=== PATIENT | female | born 1960 | race Caucasian/White ===

== ENCOUNTER → 2016-05-09 | Outpatient (CLI) | payer MEDICAID | LOC: WI 14:49 | PROVIDERS: ATTEND Internal Medicine | DX: Z12.31 Encounter for screening mammogram for malignant neoplasm of breast (principal) | CPT/HCPCS: 77067; G0202 ==

== ENCOUNTER → 2016-08-30 | Outpatient (CLI) | payer MEDICAID ==
[2016-08-30 14:44] LABS: HEMATOCRIT 35.2 % (36.0-47.0); HEMOGLOBIN 12.1 g/dL (12.0-15.5); HGB HCT DIFFERENCE 1.1; MEAN CORPUSCULAR HEMOGLOBIN 34.3 pg (27.0-33.4); MEAN CORPUSCULAR HGB CONC 34.3 g/dL (32.0-36.0); MEAN CORPUSCULAR VOLUME 100 fl (80-97); RED BLOOD COUNT 3.53 10^6/uL (3.72-5.28); RED CELL DISTRIBUTION WIDTH 12.6 % (11.5-14.0); WHITE BLOOD COUNT 10.4 10^3/uL (4.0-10.5)
== END ==
LOC: OD 13:34
PROVIDERS: ATTEND Specialist
DX: R56.9 Unspecified convulsions (principal)
CPT/HCPCS: 36415; 80156; 84460; 85027

== ENCOUNTER 2016-12-29 13:58 | Inpatient (IN) | payer MEDICAID ==
[2016-12-29] MEDS ORDERED: KETOROLAC TROMETHAMINE INJ/PF 30 MG/1 ML SDV IV ONE (14:09)
[2016-12-29] MEDS ORDERED: NORMAL SALINE 1000 ML 1,000 ML IV ONE (14:09)
[2016-12-29] MEDS ORDERED: ONDANSETRON HCL INJ/PF 4 MG/2 ML SDV IV ONE (14:09)
--- NOTE | 2016-12-29 14:12 | ER Document Report ---
ED Medical Screen (RME) - General Chief Complaint: Nausea/Vomiting/Diarrhea Stated Complaint: VOMITING,STOMACH PAIN Time Seen by Provider: 12/29/16 14:08 Mode of Arrival: Wheelchair Information source: Patient TRAVEL OUTSIDE OF THE [place] IN LAST 30 DAYS: No - HPI Patient complains to provider of: abd pain; vomiting Onset: Yesterday - pt seen here yesterday with d/o colitis -- not able to keep food or fluids down since this am -- now has diarrhea with some blood mixed in and worsening of pain - Related Data Allergies/Adverse Reactions: Penicillins Allergy (Intermediate, Verified 12/29/16 14:03) RASH, HIVES, ITCHING Past Medical History - Past Medical History Cardiac Medical History: Reports: Hx Hypercholesterolemia, Hx Hypertension Denies: Hx Coronary Artery Disease, Hx Heart Attack Pulmonary Medical History: Denies: Hx Asthma, Hx Bronchitis, Hx COPD, Hx Pneumonia Neurological Medical History: Reports: Hx Migraine, Hx Seizures. Denies: Hx Cerebrovascular Accident Renal/ Medical History: Denies: Hx Peritoneal Dialysis GI Medical History: Denies: Hx Hepatitis, Hx Hiatal Hernia, Hx Ulcer Musculoskeltal Medical History: Denies Hx Arthritis Psychiatric Medical History: Reports: Hx Anxiety, Hx Depression Infectious Medical History: Denies: Hx Hepatitis Past Surgical History: Reports: Hx Hysterectomy. Denies: Hx Mastectomy, Hx Open Heart Surgery, Hx Pacemaker - Immunizations Hx Diphtheria, Pertussis, Tetanus Vaccination: Yes Physical Exam - Vital signs Vitals: Temp Pulse Resp BP Pulse Ox 98.6 F 105 H 18 99/68 L 97 12/29/16 14:04 12/29/16 14:04 12/29/16 14:04 12/29/16 14:04 12/29/16 14:04 Course - Vital Signs Vital signs: Temp Pulse Resp BP Pulse Ox 98.6 F 105 H 18 99/68 L 97 12/29/16 14:04 12/29/16 14:04 12/29/16 14:04 12/29/16 14:04 12/29/16 14:04
[2016-12-29 15:09] LABS: APPEARANCE,URINE SLIGHTLY-CLOUDY; BILIRUBIN,URINE NEGATIVE (NEGATIVE); GLUCOSE, URINE NEGATIVE (NEGATIVE); KETONES,URINE TRACE mg/dL (NEGATIVE); LEUKOCYTE ESTERASE,URINE SMALL (NEGATIVE); NITRITE,URINE NEGATIVE (NEGATIVE); PROTEIN,URINE NEGATIVE (NEGATIVE); URINE SPECIFIC GRAVITY 1.024; UROBILINOGEN,URINE NEGATIVE mg/dL (<2.0)
[2016-12-29 15:35] LABS: HEMATOCRIT 34.5 % (36.0-47.0); HEMOGLOBIN 11.8 g/dL (12.0-15.5); HGB HCT DIFFERENCE 0.9; MEAN CORPUSCULAR HEMOGLOBIN 34.2 pg (27.0-33.4); MEAN CORPUSCULAR HGB CONC 34.4 g/dL (32.0-36.0); MEAN CORPUSCULAR VOLUME 100 fl (80-97); RED BLOOD COUNT 3.47 10^6/uL (3.72-5.28); RED CELL DISTRIBUTION WIDTH 12.3 % (11.5-14.0)
[2016-12-29 15:49] LABS: ALANINE AMINOTRANSFERASE 23 U/L (9-52); ALKALINE PHOSPHATASE 116 U/L (38-126); ANION GAP 9 (5-19); ASPARTATE AMINO TRANSFERASE 22 U/L (14-36); BILIRUBIN,DIRECT 0.4 mg/dL (0.0-0.4); BILIRUBIN,TOTAL 0.7 mg/dL (0.2-1.3); BLOOD UREA NITROGEN 11 mg/dL (7-20); CARBON DIOXIDE 25 mmol/L (22-30); CHLORIDE 100 mmol/L (98-107); CREATININE RESULT 0.77 mg/dL (0.52-1.25); GLUCOSE 120 mg/dL (75-110); LIPASE 81.9 U/L (23-300); POTASSIUM 3.8 mmol/L (3.6-5.0); SODIUM 133.7 mmol/L (137-145)
[2016-12-29 15:53] LABS: BASOPHILS % (MANUAL) 0 % (0-2); EOSINOPHILS % (MANUAL) 0 % (0-6); LYMPHOCYTES % (MANUAL) 4 % (13-45); TOTAL CELLS COUNTED 100
--- NOTE | 2016-12-29 15:53 | RADIOLOGY REPORT (SQ) ---
EXAM DESCRIPTION: ACUTE ABDOMEN SERIES COMPLETED DATE/TIME: 12/29/2016 3:44 pm REASON FOR STUDY: abd pain; vomiting COMPARISON: None. NUMBER OF VIEWS: Three views. TECHNIQUE: Frontal chest, supine abdomen and upright abdomen radiographic images acquired. LIMITATIONS: None. FINDINGS: CHEST: Lungs clear of infiltrates. FREE AIR: None. No abnormal gas collections. BOWEL GAS PATTERN: There is moderate amount of bowel gas, but no distended loops of bowel are present . There is contrast in the ascending colon from prior CT. CALCIFICATIONS: No suspicious calcifications. HARDWARE: None in the abdomen. SOFT TISSUES: No gross mass or suggestion of organomegaly. BONES: No acute fracture. No worrisome bone lesions. OTHER: No other significant finding. IMPRESSION: Nonspecific abdomen. TECHNICAL DOCUMENTATION: JOB ID: [id number] [employer]- All Rights Reserved
[2016-12-29 15:54] LABS: MICROCYTOSIS SLIGHT
[2016-12-29 15:55] LABS: TOXIC GRANULATION SLIGHT
--- NOTE | 2016-12-29 16:12 | ER Document Report ---
ED GI/ - General Chief Complaint: Nausea/Vomiting/Diarrhea Stated Complaint: VOMITING,STOMACH PAIN Time Seen by Provider: 12/29/16 14:08 Mode of Arrival: Wheelchair Information source: Patient Notes: Patient is a 56-year-old female who was seen here yesterday by myself for nausea , vomiting, lower abdominal pain, worse on the left side, diarrhea. Patient states that she went home with her antibiotics that I gave her, Cipro, Flagyl and her pain medication and nausea medication but could not hold anything down even after taking the nausea medication. Patient states that she has now started having some blood in her diarrhea that scared her. She states that it was bright red blood, but that it did not hurt to have a bowel movement. Patient states that her pain is the same in the left lower quadrant. She denies any fevers but admits to body aches and "just feeling awful." TRAVEL OUTSIDE OF THE [place] IN LAST 30 DAYS: No - Related Data Allergies/Adverse Reactions: Penicillins Allergy (Intermediate, Verified 12/29/16 14:03) RASH, HIVES, ITCHING Home Medications: Current Home Medications Atorvastatin Calcium [Lipitor 10 mg Tablet] 10 mg PO QHS 12/29/16 [History] Butalb/Acetaminophen/Caffeine [Qxomks-Xbivhjsm-Xumn 50-325-40] 1 tab PO Q8HP PRN 12/29/16 [History] Carbamazepine [Carbamazepine ER] 400 mg PO Q12 12/29/16 [History] Lisinopril/Hydrochlorothiazide [Lisinopril-Hctz 20-12.5 mg Tab] 1 tab PO DAILY 12/29/16 [History] Metoprolol Succinate [Toprol Xl 50 mg Tab.sr] 50 mg PO DAILY 12/29/16 [History] Omeprazole 20 mg PO DAILY 12/29/16 [History] Quetiapine Fumarate [Seroquel] 100 mg PO QHS 12/29/16 [History] Past Medical History - General Information source: Patient - Social History Smoking Status: Unknown if Ever Smoked Family History: Reviewed & Not Pertinent Patient has suicidal ideation: No Patient has homicidal ideation: No - Past Medical History Cardiac Medical History: Reports: Hx Hypercholesterolemia, Hx Hypertension Denies: Hx Coronary Artery Disease, Hx Heart Attack Pulmonary Medical History: Denies: Hx Asthma, Hx Bronchitis, Hx COPD, Hx Pneumonia Neurological Medical History: Reports: Hx Migraine, Hx Seizures. Denies: Hx Cerebrovascular Accident Renal/ Medical History: Denies: Hx Peritoneal Dialysis GI Medical History: Denies: Hx Hepatitis, Hx Hiatal Hernia, Hx Ulcer Musculoskeltal Medical History: Denies Hx Arthritis Psychiatric Medical History: Reports: Hx Anxiety, Hx Depression Infectious Medical History: Denies: Hx Hepatitis Past Surgical History: Reports: Hx Hysterectomy. Denies: Hx Mastectomy, Hx Open Heart Surgery, Hx Pacemaker - Immunizations Hx Diphtheria, Pertussis, Tetanus Vaccination: Yes Review of Systems - Review of Systems Constitutional: See HPI EENT: No symptoms reported Cardiovascular: No symptoms reported Respiratory: No symptoms reported Gastrointestinal: See HPI Genitourinary: No symptoms reported Female Genitourinary: No symptoms reported Musculoskeletal: No symptoms reported Skin: No symptoms reported Hematologic/Lymphatic: No symptoms reported Neurological/Psychological: No symptoms reported Physical Exam - Vital signs Vitals: Temp Pulse Resp BP Pulse Ox 98.6 F 105 H 18 99/68 L 97 12/29/16 14:04 12/29/16 14:04 12/29/16 14:04 12/29/16 14:04 12/29/16 14:04 - Notes Notes: PHYSICAL EXAMINATION: GENERAL: Mildly ill-appearing, but in no acute distress. HEAD: Atraumatic, normocephalic. EYES: Pupils equal round and reactive to light, extraocular movements intact, sclera anicteric, conjunctiva are normal. NECK: Normal range of motion, supple without lymphadenopathy LUNGS: CTAB and equal. No wheezes rales or rhonchi. HEART: Regular rate and rhythm without murmurs ABDOMEN: Soft, mild diffuse tenderness, moderate left lower quadrant tenderness. No guarding, no rebound BACK: no vertebral tenderness, normal ROM GI/: no CVA tenderness rectal: Normal tone, no blood, no hemorrhoids appreciated EXTREMITIES: Normal range of motion, no pitting edema. No cyanosis. NEUROLOGICAL: Cranial nerves grossly intact. Normal sensory/motor exams. PSYCH: Normal mood, normal affect. SKIN: Warm, Dry, normal turgor, no rashes or lesions noted Course - Re-evaluation Re-evalutation: 12/29/16 18:28 Patient has a white count of 28,000. Patient was asked to give us a stool sample yesterday but could not. Patient was asked again today to give us a stool sample. Patient admitted here for colitis, likely C. difficile, to Dr. Loyola hospitalist., - Vital Signs Vital signs: Temp Pulse Resp BP Pulse Ox 98.4 F 81 20 100/49 L 98 12/29/16 14:51 12/29/16 16:48 12/29/16 14:51 12/29/16 16:48 12/29/16 16:48 - Laboratory Result Diagrams: 12/29/16 15:04 12/29/16 15:04 Laboratory results interpreted by me: 12/29/16 12/29/16 12/29/16 14:25 15:04 15:04 WBC 28.0 H RBC 3.47 L Hgb 11.8 L Hct 34.5 L MCV 100 H MCH 34.2 H Seg Neuts % (Manual) 93 H Lymphocytes % (Manual) 4 L Abs Neuts (Manual) 26.0 H Sodium 133.7 L Glucose 120 H Urine Ketones TRACE H Urine Blood SMALL H Ur Leukocyte Esterase SMALL H Discharge - Discharge Clinical Impression: Colitis, Vomiting and diarrhea Condition: Stable Disposition: ADMITTED INPATIENT Admitting Provider: Hospitalist Unit Admitted: Medical Floor
[2016-12-29] MEDS ORDERED: ACETAMINOPHEN 650 MG SUPP.RECT PR PRN (16:14)
[2016-12-29] MEDS ORDERED: RINGERS SOLUTION 1,000 ML IV PRN (16:22)
--- NOTE | 2016-12-29 17:15 | PDOC H&P ---
History of Present Illness Admission Date/PCP: 12/29/16 16:14 VERA MAYORGA MD Patient complains of: Nausea and vomiting since yesterday History of Present Illness: RUY SIMS is a 56 year old femaleWas seen in emergency room on December 28 since was having acute onset of generalized abdominal pain accompanied by nausea and vomiting. At that point in time patient was evaluated through CT of the abdomen and pelvis which showed inflammation of the sigmoid colon. Since she improved patient was prescribed Cipro and Flagyl and discharged from the emergency room. Patient then returns back on the day of admission complaining of nausea and vomiting and worsening of pain. Interestingly by the time of evaluation patient reported feeling better. When stomach pain started she also experienced watery diarrhea. She admits that she had been prescribed for multiple occasions antibiotics due to recurrent urinary tract infection. Patient again was evaluated in emergency room and it was concerning that white blood cell count went up. Since was not able to tolerate p.o. and white blood cell count had gone up the hospitalist service was consulted and prompted to admit for further management Past Medical History Cardiac Medical History: Reports: Hyperlipidema, Hypertension Denies: Coronary Artery Disease, Myocardial Infarction Pulmonary Medical History: Denies: Asthma, Bronchitis, Chronic Obstructive Pulmonary Disease (COPD), Pneumonia Neurological Medical History: Reports: Migraine, Seizures, Other - Cerebral aneurysm Endocrine Medical History: Denies: None Renal/ Medical History: Reports: Other - Right urinary tract infection Malignancy Medical History: Denies: None GI Medical History: Denies: Hepatitis, Hiatal Hernia Musculoskeltal Medical History: Denies: Arthritis Psychiatric Medical History: Reports: Depression, Tobacco Dependency Hematology: Denies: Anemia, Sickle Cell Disease Past Surgical History Past Surgical History: Reports: Hysterectomy, Other - Clipping of cerebral aneurysm Denies: Amputation, Mastectomy, Pacemaker Social History Information Source: Patient Smoking Status: Current Every Day Smoker Cigarettes Packs Per Day: 1 Number of Years Smokin Frequency of Alcohol Use: None Hx Recreational Drug Use: Yes Drugs: None Hx Prescription Drug Abuse: Yes - Advance Directive Resuscitation Status: Full Code Family History Family History: Malignancy Parental Family History Reviewed: Yes Children Family History Reviewed: Yes Sibling(s) Family History Reviewed.: Yes Medication/Allergy Home Medications: Carbamazepine [Tegretol Xr 100 mg Tab.sr] 400 mg PO BID 09/11/12 Metoprolol Succinate [Toprol Xl 25 mg Tab.sr] 50 mg PO DAILY 09/11/12 Quetiapine Fumarate [Seroquel 25 mg Tablet] 100 mg PO QHS 09/11/12 Lisinopril/Hydrochlorothiazide [Lisinopril-Hctz 20-12.5 mg Tab] 1 each PO DAILY 12/02/12 Aspirin/Caffeine [Bc Powder Packet] 1 pkt PO DAILY PRN 11/11/13 Diphenhydramine HCl [Benadryl 25 Mg Capsule] 25 mg PO Q6 #30 capsule 02/28/14 Famotidine [Pepcid 20 mg Tablet] 20 mg PO BID #12 tablet 02/28/14 Prednisone 40 mg PO DAILY #8 tablet 02/28/14 Ciprofloxacin HCl [Cipro 500 mg Tablet] 500 mg PO BID #20 tablet 12/28/16 Metronidazole [Flagyl 500 mg Tablet] 500 mg PO BID #20 tablet 12/28/16 Ondansetron [Zofran Odt 4 mg Tablet] 1 - 2 tab PO Q4H PRN #30 tab.rapdis Oxycodone HCl/Acetaminophen [Percocet 5-325 mg Tablet] 1 - 2 tab PO Q4H PRN #15 tablet 12/28/16 Allergies/Adverse Reactions: Penicillins Allergy (Intermediate, Verified 12/29/16 14:03) RASH, HIVES, ITCHING Review of Systems Constitutional: PRESENT: chills, headache(s), weakness Eyes: ABSENT: visual disturbances Ears: ABSENT: hearing changes Cardiovascular: ABSENT: edema, orthropnea, palpitations Respiratory: ABSENT: cough Gastrointestinal: PRESENT: abdominal pain, bloating, diarrhea, nausea, vomiting Genitourinary: ABSENT: difficulty urinating, dysuria Musculoskeletal: ABSENT: deformity, joint swelling Integumentary: ABSENT: lesions, pruritus Neurological: ABSENT: abnormal gait, focal weakness Psychiatric: PRESENT: depression Endocrine: ABSENT: cold intolerance, heat intolerance Hematologic/Lymphatic: ABSENT: easy bleeding, easy bruising Physical Exam Vital Signs: Temp Pulse Resp BP Pulse Ox 98.6 F 81 18 100/49 L 98 12/29/16 14:04 12/29/16 16:48 12/29/16 14:04 12/29/16 16:48 12/29/16 16:48 General appearance: PRESENT: no acute distress, cooperative, thin Head exam: PRESENT: atraumatic, normocephalic Eye exam: PRESENT: conjunctiva pink, EOMI, PERRLA Ear exam: PRESENT: normal external ear exam Mouth exam: PRESENT: dry mucosa, neck supple Neck exam: PRESENT: full ROM. ABSENT: JVD, lymphadenopathy, tenderness, thyromegaly Respiratory exam: PRESENT: clear to auscultation yoana Cardiovascular exam: PRESENT: RRR. ABSENT: diastolic murmur, gallop, systolic murmur Vascular exam: PRESENT: normal capillary refill GI/Abdominal exam: PRESENT: distended, guarding, normal bowel sounds, tenderness Rectal exam: PRESENT: deferred Extremities exam: PRESENT: full ROM. ABSENT: joint swelling, pedal edema Musculoskeletal exam: PRESENT: full ROM Neurological exam: PRESENT: alert, oriented to person, oriented to place, oriented to time Psychiatric exam: PRESENT: appropriate affect, normal mood Skin exam: PRESENT: intact, normal color Results Impressions: Acute Abdomen Series 12/29/16 14:09 IMPRESSION: Nonspecific abdomen. Assessment & Plan - Diagnosis (1) Nausea and vomiting Qualifiers: Vomiting Intractability: unspecified Is this a current diagnosis for this admission?: Yes Plan: Patient will be placed on nothing by mouth except medications. Will provide antiemetics and she will be placed on IV fluids (2) Tobacco abuse Is this a current diagnosis for this admission?: Yes Plan: We will request nicotine patch patient has been educated about quitting smoking. Made aware about the dangers such as heart attack, stroke, lung cancer , emphysema and circulatory problems inclusive (3) Tobacco abuse counseling Is this a current diagnosis for this admission?: Yes Plan: Counseling provided as aforementioned (4) Seizure disorder Is this a current diagnosis for this admission?: Yes Plan: Has not experienced a seizure episode for around 20 years however will continue with Tegretol as outpatient (5) Colitis Is this a current diagnosis for this admission?: Yes Plan: Suspect that it relates to Clostridium difficile. Patient at the present time unable to collect stool sample. She will be kept n.p.o. except for meds and will start Flagyl IV. (6) HTN (hypertension) Is this a current diagnosis for this admission?: Yes Plan: Now on the lower side. Will hold off antihypertensive regimen. - Time Time Spent: 50 to 70 Minutes Medications reviewed and adjusted accordingly: Yes Anticipated discharge: Home Within: within 48 hours - Inpatient Certification Based on my medical assessment, after consideration of the patient's comorbidities, presenting symptoms, or acuity I expect that the services needed warrant INPATIENT care.: Yes I certify that my determination is in accordance with my understanding of Medicare's requirements for reasonable and necessary INPATIENT services [42 CFR 412.3e].: Yes Medical Necessity: Need For IV Fluids, Need for Pain Control, Need for IV Antibiotics
[2016-12-29] MEDS: MORPHINE SULFATE 10 MG/ML INJ IV PRN (20:15)
[2016-12-29] MEDS: QUETIAPINE FUMARATE 100 MG TABLET PO SCH (21:23)
[2016-12-29] MEDS: CARBAMAZEPINE 200 MG TAB.SR.12H PO SCH (21:23)
[2016-12-29] MEDS ORDERED: CARBAMAZEPINE 400 MG PO SCH (22:00)
[2016-12-30 06:16] LABS: ABSOLUTE EOSINOPHILS # (AUTO) 0.1 10^3/uL (0.0-0.6); ABSOLUTE LYMPHOCYTES (AUTO) 2.1 10^3/uL (0.5-4.7); ABSOLUTE NEUT (AUTO) 12.6 10^3/uL (1.7-8.2); BASOPHILS % (AUTO) 0.2 % (0-2); EOSINOPHILS % (AUTO) 0.5 % (0-6); HEMATOCRIT 25.5 % (36.0-47.0); HGB HCT DIFFERENCE 1.2; LYMPHOCYTES % (AUTO) 13.3 % (13-45); MEAN CORPUSCULAR HEMOGLOBIN 35.1 pg (27.0-33.4); MEAN CORPUSCULAR VOLUME 100 fl (80-97); MONOCYTES % (AUTO) 6.6 % (3-13); RED BLOOD COUNT 2.54 10^6/uL (3.72-5.28); RED CELL DISTRIBUTION WIDTH 12.4 % (11.5-14.0); SEGMENTED NEUTROPHILS % (AUTO) 79.4 % (42-78); WHITE BLOOD COUNT 15.9 10^3/uL (4.0-10.5)
[2016-12-30 06:19] LABS: HEMOGLOBIN 8.9 g/dL (12.0-15.5)
[2016-12-30 06:30] LABS: ANION GAP 7 (5-19); BLOOD UREA NITROGEN 9 mg/dL (7-20); CALCIUM 8.1 mg/dL (8.4-10.2); CARBON DIOXIDE 27 mmol/L (22-30); CHLORIDE 105 mmol/L (98-107); CREATININE RESULT 0.76 mg/dL (0.52-1.25); GLUCOSE 85 mg/dL (75-110); MAGNESIUM 1.7 mg/dL (1.6-2.3); POTASSIUM 3.4 mmol/L (3.6-5.0); SODIUM 138.9 mmol/L (137-145)
[2016-12-30] MEDS: MORPHINE SULFATE 10 MG/ML INJ IV PRN ×2 (09:44→20:26)
[2016-12-30] MEDS: CARBAMAZEPINE 200 MG TAB.SR.12H PO SCH ×2 (09:44→21:32)
[2016-12-30] MEDS ORDERED: ENOXAPARIN SODIUM INJ 40 MG/0.4 ML DISP.SYRIN SUBCUT SCH (10:00)
--- NOTE | 2016-12-30 12:20 | PDOC PROGRESS REPORT ---
Subjective Progress Note for:: 12/30/16 Subjective:: The patient presented to the emergency department 2 days ago with nausea, vomiting and bloody diarrhea. She was discharged home on Flagyl and ciprofloxacin. Her symptoms persisted and she represented and was admitted overnight. She states that she no longer has had any nausea or vomiting and she now complains of constipation. There was a significant decrease in her hemoglobin and hematocrit overnight. Physical Exam Vital Signs: Temp Pulse Resp BP Pulse Ox 99.2 F 79 18 88/45 L 100 12/30/16 07:53 12/30/16 07:53 12/30/16 07:53 12/30/16 07:53 12/30/16 07:53 Intake & Output 12/29/16 12/30/16 12/31/16 06:59 06:59 06:59 Intake Total 1679 Balance 1679 Weight 65.9 kg Additional comments: The patient appears well. She is not in any distress. Her mentation is appropriate. Her facial appearance is unremarkable. Her lungs are clear to auscultation bilaterally. Her cardiac exam is regular without murmurs, gallops or rubs. The abdomen is soft but diffusely painful. Bowel sounds are noted. She does not have any rebound but she does have minimal guarding present. There are no hernias or masses present. The lower extremities are unremarkable unremarkable. She does not have any edema present. Skin is warm dry and intact without lesions or rashes. Results Laboratory Results: 12/30/16 05:09 12/30/16 05:09 12/30/16 12/30/16 05:09 05:09 WBC 15.9 H RBC 2.54 L Hgb 8.9 L D Hct 25.5 L MCV 100 H MCH 35.1 H MCHC 35.0 RDW 12.4 Plt Count 195 Seg Neutrophils % 79.4 H Lymphocytes % 13.3 Monocytes % 6.6 Eosinophils % 0.5 Basophils % 0.2 Absolute Neutrophils 12.6 H Absolute Lymphocytes 2.1 Absolute Monocytes 1.0 Absolute Eosinophils 0.1 Absolute Basophils 0.0 Sodium 138.9 Potassium 3.4 L Chloride 105 Carbon Dioxide 27 Anion Gap 7 BUN 9 Creatinine 0.76 Est GFR ( Amer) > 60 Est GFR (Non-Af Amer) > 60 Glucose 85 Calcium 8.1 L Magnesium 1.7 Impressions: Acute Abdomen Series 12/29/16 14:09 IMPRESSION: Nonspecific abdomen. Assessment & Plan - Diagnosis (1) Anemia Qualifiers: Anemia type: unspecified type Qualified Code(s): D64.9 - Anemia, unspecified Is this a current diagnosis for this admission?: Yes (2) Colitis Is this a current diagnosis for this admission?: Yes (3) HTN (hypertension) Is this a current diagnosis for this admission?: Yes (4) Nausea and vomiting Qualifiers: Vomiting Intractability: unspecified Is this a current diagnosis for this admission?: Yes (5) Seizure disorder Is this a current diagnosis for this admission?: Yes (6) Tobacco abuse Is this a current diagnosis for this admission?: Yes (7) Tobacco abuse counseling Is this a current diagnosis for this admission?: Yes (8) Vomiting and diarrhea Is this a current diagnosis for this admission?: Yes (9) Hypokalemia Is this a current diagnosis for this admission?: Yes - Inpatient Certification Medical Necessity: Need Close Monitoring Due to Risk of Patient Decompensation, Need For IV Fluids, Need for Pain Control, Need for IV Antibiotics - Plan Summary Plan Summary: The patient has been admitted for colitis. This is presumed to be infectious. She is currently on Flagyl and ciprofloxacin. She has received tobacco abuse counseling. She will remain on Tegretol for her history of seizure disorder. Her blood pressure is currently under good control. I am very concerned about her anemia and drop in hemoglobin overnight. This is likely in part secondary to dilution. However, the patient did not tell healthcare providers that she was having bloody diarrhea on admission. Further workup is necessary. A stat CBC is pending. She also has mild hypokalemia. This will be followed. She may require replacement.
[2016-12-30 12:55] LABS: HEMATOCRIT 24.4 % (36.0-47.0); HEMOGLOBIN 8.5 g/dL (12.0-15.5); HGB HCT DIFFERENCE 1.1; MEAN CORPUSCULAR HEMOGLOBIN 34.6 pg (27.0-33.4); MEAN CORPUSCULAR HGB CONC 34.7 g/dL (32.0-36.0); MEAN CORPUSCULAR VOLUME 100 fl (80-97); RED BLOOD COUNT 2.45 10^6/uL (3.72-5.28); RED CELL DISTRIBUTION WIDTH 12.4 % (11.5-14.0); WHITE BLOOD COUNT 15.8 10^3/uL (4.0-10.5)
[2016-12-30] MEDS ORDERED: CIPROFLOXACIN 400 MG/D5W RTU 400 MG/200 ML RTUPB IV ONE (13:00)
[2016-12-30] MEDS: METRONIDAZOLE 500 MG/NS RTU 100 ML IV SCH ×2 (14:08→21:32)
--- NOTE | 2016-12-30 16:31 | PDOC CONSULTATION ---
Consultation Consult Date: 12/30/16 Consult reason:: C Diff with anemia History of Present Illness Admission Date/PCP: 12/29/16 16:14 VERA MAYORGA MD History of Present Illness: This is a [id number] female who was seen in the emergency room December 28 for abdominal pains with nausea vomiting and diarrhea. A CAT scan of the abdomen then showed an inflamed sigmoid colon and given p.o. Cipro and Flagyl from the emergency room. Patient felt better prior to discharge from the ER. Patient ever come came back this morning with nausea vomiting and increasing abdominal pains. Patient apparently was prescribed p.o. antibiotics in the past 1-2 months for UTI. Her hemoglobin dropped and hospital his hospitalist is concern about GI bleed. Patient has been having diarrhea with the nurses claiming" orange" colored diarrhea stools Past Medical History Cardiac Medical History: Reports: Hyperlipidema, Hypertension Denies: Coronary Artery Disease, Myocardial Infarction Pulmonary Medical History: Denies: Asthma, Bronchitis, Chronic Obstructive Pulmonary Disease (COPD), Pneumonia Neurological Medical History: Reports: Migraine, Seizures, Other - Cerebral aneurysm Endocrine Medical History: Denies: None Renal/ Medical History: Reports: Other - Right urinary tract infection Malignancy Medical History: Denies: None GI Medical History: Denies: Hepatitis, Hiatal Hernia Musculoskeltal Medical History: Denies: Arthritis Psychiatric Medical History: Reports: Depression, Tobacco Dependency Hematology: Denies: Anemia, Sickle Cell Disease Past Surgical History Past Surgical History: Reports: Hysterectomy, Other - Clipping of cerebral aneurysm Denies: Amputation, Mastectomy, Pacemaker Social History Smoking Status: Unknown if Ever Smoked Cigarettes Packs Per Day: 1 Number of Years Smokin Frequency of Alcohol Use: None Hx Recreational Drug Use: No Drugs: None Hx Prescription Drug Abuse: No - Advance Directive Resuscitation Status: Full Code Family History Family History: Reviewed & Not Pertinent Parental Family History Reviewed: No Children Family History Reviewed: No Sibling(s) Family History Reviewed.: No Medication/Allergy Home Medications: Atorvastatin Calcium [Lipitor 10 mg Tablet] 10 mg PO QHS 12/29/16 Butalb/Acetaminophen/Caffeine [Yhxwor-Tmumjecz-Eubh 50-325-40] 1 tab PO Q8HP PRN 12/29/16 Carbamazepine [Carbamazepine ER] 400 mg PO Q12 12/29/16 Lisinopril/Hydrochlorothiazide [Lisinopril-Hctz 20-12.5 mg Tab] 1 tab PO DAILY 12/29/16 Metoprolol Succinate [Toprol Xl 50 mg Tab.sr] 50 mg PO DAILY 12/29/16 Omeprazole 20 mg PO DAILY 12/29/16 Quetiapine Fumarate [Seroquel] 100 mg PO QHS 12/29/16 Allergies/Adverse Reactions: Penicillins Allergy (Intermediate, Verified 12/29/16 14:03) RASH, HIVES, ITCHING Review of Systems Gastrointestinal: PRESENT: as per HPI, abdominal pain, nausea, vomiting Genitourinary: PRESENT: other - No dysuria Musculoskeletal: PRESENT: other - No joint swelling Integumentary: PRESENT: other - No skin rash Neurological: PRESENT: other - No syncopal episode Endocrine: PRESENT: other - No polyuria nor polydipsia Hematologic/Lymphatic: PRESENT: other - No easy bruisability or lymphadenopathy Physical Exam Vital Signs: Temp Pulse Resp BP Pulse Ox 98.7 F 83 16 93/48 L 99 12/30/16 12:00 12/30/16 12:00 12/30/16 12:00 12/30/16 12:00 12/30/16 12:00 Intake & Output 12/29/16 12/30/16 12/31/16 06:59 06:59 06:59 Intake Total 1679 Balance 1679 Weight 65.9 kg General appearance: PRESENT: mild distress Head exam: PRESENT: atraumatic, normocephalic Eye exam: PRESENT: conjunctiva pink Ear exam: PRESENT: normal external ear exam Neck exam: PRESENT: full ROM Respiratory exam: PRESENT: clear to auscultation yoana Cardiovascular exam: PRESENT: RRR Pulses: PRESENT: normal femoral pulses GI/Abdominal exam: PRESENT: soft, tenderness - Mild diffuse tenderness Rectal exam: PRESENT: deferred Extremities exam: PRESENT: full ROM Musculoskeletal exam: PRESENT: ambulatory Neurological exam: PRESENT: alert, oriented to person, oriented to place, oriented to time, oriented to situation Results Laboratory Results: 12/30/16 12:44 12/30/16 05:09 12/30/16 12/30/16 12/30/16 05:09 05:09 11:00 WBC 15.9 H RBC 2.54 L Hgb 8.9 L D Hct 25.5 L MCV 100 H MCH 35.1 H MCHC 35.0 RDW 12.4 Plt Count 195 Seg Neutrophils % 79.4 H Lymphocytes % 13.3 Monocytes % 6.6 Eosinophils % 0.5 Basophils % 0.2 Absolute Neutrophils 12.6 H Absolute Lymphocytes 2.1 Absolute Monocytes 1.0 Absolute Eosinophils 0.1 Absolute Basophils 0.0 Sodium 138.9 Potassium 3.4 L Chloride 105 Carbon Dioxide 27 Anion Gap 7 BUN 9 Creatinine 0.76 Est GFR ( Amer) > 60 Est GFR (Non-Af Amer) > 60 Glucose 85 Calcium 8.1 L Magnesium 1.7 Stool Occult Blood POSITIVE 12/30/16 12:44 WBC 15.8 H RBC 2.45 L Hgb 8.5 L Hct 24.4 L MCV 100 H MCH 34.6 H MCHC 34.7 RDW 12.4 Plt Count 198 Seg Neutrophils % Lymphocytes % Monocytes % Eosinophils % Basophils % Absolute Neutrophils Absolute Lymphocytes Absolute Monocytes Absolute Eosinophils Absolute Basophils Sodium Potassium Chloride Carbon Dioxide Anion Gap BUN Creatinine Est GFR ( Amer) Est GFR (Non-Af Amer) Glucose Calcium Magnesium Stool Occult Blood Impressions: Acute Abdomen Series 12/29/16 14:09 IMPRESSION: Nonspecific abdomen. Assessment & Plan - Diagnosis (1) C. difficile colitis Is this a current diagnosis for this admission?: Yes - Time Time Spent: 30 to 50 Minutes Critical Time spent with patient: 15-24 minutes - Inpatient Certification Medical Necessity: Need For IV Fluids, Need for Pain Control, Need for IV Antibiotics - Plan Summary Plan Summary: #1 monitor CBC with differential and coagulation 2. Start with p.o. Vancomycin together with the IV Flagyl 3. Continue hydration 4. We will follow closely with you
[2016-12-30] MEDS: VANCOMYCIN HCL INJ 500 MG VIAL PO SCH ×2 (18:19→23:54)
[2016-12-30] MEDS: POTASSI CL 20 MEQ/D5-1/2NS 1L 1,000 ML IV PRN (19:59)
[2016-12-30] MEDS: MAGNESIUM SULFATE/D5W 1 GM/100 ML RTUPB IV SCH ×2 (20:00→22:28)
[2016-12-30 20:34] LABS: HEMATOCRIT 25.1 % (36.0-47.0); HEMOGLOBIN 8.5 g/dL (12.0-15.5); HGB HCT DIFFERENCE 0.4; MEAN CORPUSCULAR HEMOGLOBIN 33.8 pg (27.0-33.4); MEAN CORPUSCULAR VOLUME 99 fl (80-97); RED BLOOD COUNT 2.53 10^6/uL (3.72-5.28); RED CELL DISTRIBUTION WIDTH 12.1 % (11.5-14.0)
[2016-12-30] MEDS: QUETIAPINE FUMARATE 100 MG TABLET PO SCH (21:32)
[2016-12-30] MEDS ORDERED: CIPROFLOXACIN 400 MG/D5W RTU 400 MG/200 ML RTUPB IV SCH (22:00)
[2016-12-31 05:45] LABS: ABSOLUTE BASOPHILS # (AUTO) 0.1 10^3/uL (0.0-0.2); ABSOLUTE EOSINOPHILS # (AUTO) 0.1 10^3/uL (0.0-0.6); ABSOLUTE LYMPHOCYTES (AUTO) 1.8 10^3/uL (0.5-4.7); ABSOLUTE MONOCYTES (AUTO) 0.9 10^3/uL (0.1-1.4); ABSOLUTE NEUT (AUTO) 10.5 10^3/uL (1.7-8.2); BASOPHILS % (AUTO) 0.5 % (0-2); EOSINOPHILS % (AUTO) 0.6 % (0-6); HEMATOCRIT 23.8 % (36.0-47.0); HEMOGLOBIN 8.3 g/dL (12.0-15.5); HGB HCT DIFFERENCE 1.1; LYMPHOCYTES % (AUTO) 13.6 % (13-45); MEAN CORPUSCULAR HEMOGLOBIN 34.6 pg (27.0-33.4); MEAN CORPUSCULAR HGB CONC 34.7 g/dL (32.0-36.0); MEAN CORPUSCULAR VOLUME 100 fl (80-97); MONOCYTES % (AUTO) 6.9 % (3-13); RED BLOOD COUNT 2.39 10^6/uL (3.72-5.28); RED CELL DISTRIBUTION WIDTH 12.1 % (11.5-14.0); SEGMENTED NEUTROPHILS % (AUTO) 78.4 % (42-78); WHITE BLOOD COUNT 13.4 10^3/uL (4.0-10.5)
[2016-12-31] MEDS: ONDANSETRON HCL INJ/PF 4 MG/2 ML SDV IV PRN ×2 (05:48→16:54)
[2016-12-31] MEDS: VANCOMYCIN HCL INJ 500 MG VIAL PO SCH ×4 (05:48→23:19)
[2016-12-31] MEDS: POTASSI CL 20 MEQ/D5-1/2NS 1L 1,000 ML IV PRN (05:48)
[2016-12-31] MEDS: MORPHINE SULFATE 10 MG/ML INJ IV PRN (05:48)
[2016-12-31] MEDS: METRONIDAZOLE 500 MG/NS RTU 100 ML IV SCH ×3 (05:48→22:10)
[2016-12-31 05:53] LABS: PARTIAL THROMBOPLASTIN TIME 39.2 SEC (23.5-35.8); PROTHROMBIN TIME 14.1 SEC (11.4-15.4)
[2016-12-31 06:21] LABS: ALANINE AMINOTRANSFERASE 29 U/L (9-52); ALKALINE PHOSPHATASE 74 U/L (38-126); ANION GAP 7 (5-19); ASPARTATE AMINO TRANSFERASE 22 U/L (14-36); BILIRUBIN,DIRECT 0.4 mg/dL (0.0-0.4); BILIRUBIN,TOTAL 0.4 mg/dL (0.2-1.3); BLOOD UREA NITROGEN 6 mg/dL (7-20); CALCIUM 7.9 mg/dL (8.4-10.2); CARBON DIOXIDE 27 mmol/L (22-30); CHLORIDE 107 mmol/L (98-107); CREATININE RESULT 0.62 mg/dL (0.52-1.25); GLUCOSE 120 mg/dL (75-110); MAGNESIUM 2.2 mg/dL (1.6-2.3); PHOSPHORUS 2.6 mg/dL (2.5-4.5); POTASSIUM 3.3 mmol/L (3.6-5.0); SODIUM 141.3 mmol/L (137-145); TOTAL PROTEIN 5.7 g/dL (6.3-8.2)
[2016-12-31] MEDS ORDERED: POTASSI CL 20 MEQ/50 ML RIDER 20 MEQ/50 ML RTUPB IV ONE (07:36)
--- NOTE | 2016-12-31 10:46 | PDOC PROGRESS REPORT ---
Subjective Progress Note for:: 12/31/16 Subjective:: Less abdominal pains. Passed flatus this am with a small formed stool. Physical Exam Vital Signs: Temp Pulse Resp BP Pulse Ox 98.8 F 79 16 89/42 L 100 12/31/16 08:00 12/31/16 08:00 12/31/16 08:00 12/31/16 08:00 12/31/16 08:00 Intake & Output 12/30/16 12/31/16 01/01/17 06:59 06:59 06:59 Intake Total 1679 2790 Output Total 600 Balance 1679 2190 Weight 65.9 kg 66.5 kg Exam: abdomen os soft with mild difuse tenderness Results Laboratory Results: 12/31/16 05:10 12/31/16 05:10 12/30/16 12/30/16 12/30/16 11:00 12:44 15:08 WBC 15.8 H RBC 2.45 L Hgb 8.5 L Hct 24.4 L MCV 100 H MCH 34.6 H MCHC 34.7 RDW 12.4 Plt Count 198 Seg Neutrophils % Lymphocytes % Monocytes % Eosinophils % Basophils % Absolute Neutrophils Absolute Lymphocytes Absolute Monocytes Absolute Eosinophils Absolute Basophils Sodium Potassium Chloride Carbon Dioxide Anion Gap BUN Creatinine Est GFR ( Amer) Est GFR (Non-Af Amer) Glucose Calcium Phosphorus Magnesium Total Bilirubin AST ALT Alkaline Phosphatase Total Protein Albumin Stool Occult Blood POSITIVE Blood Type O POSITIVE Antibody Screen NEGATIVE 12/30/16 12/31/16 12/31/16 20:15 05:10 05:10 WBC 14.0 H 13.4 H RBC 2.53 L 2.39 L Hgb 8.5 L 8.3 L Hct 25.1 L 23.8 L MCV 99 H 100 H MCH 33.8 H 34.6 H MCHC 34.0 34.7 RDW 12.1 12.1 Plt Count 210 210 Seg Neutrophils % 78.4 H Lymphocytes % 13.6 Monocytes % 6.9 Eosinophils % 0.6 Basophils % 0.5 Absolute Neutrophils 10.5 H Absolute Lymphocytes 1.8 Absolute Monocytes 0.9 Absolute Eosinophils 0.1 Absolute Basophils 0.1 Sodium 141.3 Potassium 3.3 L Chloride 107 Carbon Dioxide 27 Anion Gap 7 BUN 6 L Creatinine 0.62 Est GFR ( Amer) > 60 Est GFR (Non-Af Amer) > 60 Glucose 120 H Calcium 7.9 L Phosphorus 2.6 Magnesium 2.2 Total Bilirubin 0.4 AST 22 ALT 29 Alkaline Phosphatase 74 Total Protein 5.7 L Albumin 3.0 L Stool Occult Blood Blood Type Antibody Screen Impressions: Acute Abdomen Series 12/29/16 14:09 IMPRESSION: Nonspecific abdomen. Assessment & Plan - Diagnosis (1) C. difficile colitis Is this a current diagnosis for this admission?: Yes - Time Time Spent with patient: 15-24 minutes - Inpatient Certification Based on my medical assessment, after consideration of the patient's comorbidities, presenting symptoms, or acuity I expect that the services needed warrant INPATIENT care.: Yes I certify that my determination is in accordance with my understanding of Medicare's requirements for reasonable and necessary INPATIENT services [42 CFR 412.3e].: Yes Medical Necessity: Need For IV Fluids, Need for Pain Control, Need for IV Antibiotics - Plan Summary Plan Summary: OK to start Clears Continue antibiotics for C Diff infection
[2016-12-31] MEDS: CARBAMAZEPINE 200 MG TAB.SR.12H PO SCH ×2 (11:24→23:19)
--- NOTE | 2016-12-31 13:41 | PDOC PROGRESS REPORT ---
Subjective Progress Note for:: 12/31/16 Subjective:: The patient presented to the emergency department 3 days ago with nausea, vomiting and bloody diarrhea. She was discharged home on Flagyl and ciprofloxacin. Her symptoms persisted and she represented and was admitted 2 nights ago. Within the first 24 hours of admission the patient had a significant drop in hemoglobin and hematocrit. Her disease has been associated with significant bright red blood per rectum. Her hemoglobin and hematocrit now appear to be stable and the patient is no longer passing bright red blood per rectum. She did have an abnormal CT scan of the abdomen and pelvis when she first came into the emergency department showing diffuse colitis. Concerning for toxic megacolon. Surgery was consulted yesterday. Surgery is following very closely. Physical Exam Vital Signs: Temp Pulse Resp BP Pulse Ox 98.0 F 87 16 102/48 L 100 12/31/16 12:00 12/31/16 12:00 12/31/16 12:00 12/31/16 12:00 12/31/16 12:00 Intake & Output 12/30/16 12/31/16 01/01/17 06:59 06:59 06:59 Intake Total 1679 2790 Output Total 600 Balance 1679 2190 Weight 65.9 kg 66.5 kg Additional comments: The patient appears well. She does not appear to be septic and she does not appear to be in any distress. Overall, she states that she is feeling better. She did not have any pain overnight but when she woke up this morning she felt nauseated she had pain in her chest when rolling over. This was alleviating with passing flatus. Her cognition and mentation continue to be normal. Her facial appearance is normal. Her lungs remain clear to auscultation bilaterally. Her cardiac exam is regular without murmurs, gallops or rubs. The abdomen is soft. Bowel sounds are present and are normoactive. Today, no guarding is present. Again, no rebound is present. She continues to have diffuse abdominal pain. This may be slightly better than yesterday. The lower extremities are warm to touch. No edema is present. Skin is warm dry and intact without lesions or rashes. Results Laboratory Results: 12/31/16 05:10 12/31/16 05:10 12/30/16 12/30/16 12/30/16 11:00 15:08 20:15 WBC 14.0 H RBC 2.53 L Hgb 8.5 L Hct 25.1 L MCV 99 H MCH 33.8 H MCHC 34.0 RDW 12.1 Plt Count 210 Seg Neutrophils % Lymphocytes % Monocytes % Eosinophils % Basophils % Absolute Neutrophils Absolute Lymphocytes Absolute Monocytes Absolute Eosinophils Absolute Basophils Sodium Potassium Chloride Carbon Dioxide Anion Gap BUN Creatinine Est GFR ( Amer) Est GFR (Non-Af Amer) Glucose Calcium Phosphorus Magnesium Total Bilirubin AST ALT Alkaline Phosphatase Total Protein Albumin Stool Occult Blood POSITIVE Blood Type O POSITIVE Antibody Screen NEGATIVE 12/31/16 12/31/16 05:10 05:10 WBC 13.4 H RBC 2.39 L Hgb 8.3 L Hct 23.8 L MCV 100 H MCH 34.6 H MCHC 34.7 RDW 12.1 Plt Count 210 Seg Neutrophils % 78.4 H Lymphocytes % 13.6 Monocytes % 6.9 Eosinophils % 0.6 Basophils % 0.5 Absolute Neutrophils 10.5 H Absolute Lymphocytes 1.8 Absolute Monocytes 0.9 Absolute Eosinophils 0.1 Absolute Basophils 0.1 Sodium 141.3 Potassium 3.3 L Chloride 107 Carbon Dioxide 27 Anion Gap 7 BUN 6 L Creatinine 0.62 Est GFR ( Amer) > 60 Est GFR (Non-Af Amer) > 60 Glucose 120 H Calcium 7.9 L Phosphorus 2.6 Magnesium 2.2 Total Bilirubin 0.4 AST 22 ALT 29 Alkaline Phosphatase 74 Total Protein 5.7 L Albumin 3.0 L Stool Occult Blood Blood Type Antibody Screen Impressions: Acute Abdomen Series 12/29/16 14:09 IMPRESSION: Nonspecific abdomen. Assessment & Plan - Diagnosis (1) Anemia Qualifiers: Anemia type: unspecified type Qualified Code(s): D64.9 - Anemia, unspecified Is this a current diagnosis for this admission?: Yes Plan: We are following hemoglobins every 12 hours. Patient is typed and crossed for 2 units at all times. Transfuse for hemoglobin less than 7 unless bright red bleeding starts. If bright red bleeding starts I would transfuse immediately - if bright red bleeding starts I would anticipate the patient's blood loss would lead to Hgb less than 7. (2) Colitis Is this a current diagnosis for this admission?: Yes Plan: Patient is positive for C. difficile. She is receiving IV Flagyl and oral vancomycin. Surgery is following closely. (3) HTN (hypertension) Is this a current diagnosis for this admission?: Yes Plan: Patient is currently low regarding her blood pressure. This is likely from pain medications. I will reevaluate her medications and stop any antihypertensives if needed. (4) Nausea and vomiting Qualifiers: Vomiting Intractability: unspecified Is this a current diagnosis for this admission?: Yes Plan: Improved. (5) Seizure disorder Is this a current diagnosis for this admission?: Yes Plan: Continue Tegretol (6) Tobacco abuse Is this a current diagnosis for this admission?: Yes (7) Tobacco abuse counseling Is this a current diagnosis for this admission?: Yes Plan: Patient has been counseled on the need to abstain from smoking. (8) Vomiting and diarrhea Is this a current diagnosis for this admission?: Yes Plan: This is due to C. difficile colitis. (9) Hypokalemia Is this a current diagnosis for this admission?: Yes Plan: Patient is receiving intravenous supplementation. We will follow labs closely. - Time Time Spent with patient: 25-34 minutes - Inpatient Certification Medical Necessity: Need Close Monitoring Due to Risk of Patient Decompensation, Need for Pain Control, Need for IV Antibiotics, Risk of Complication if Not Cared For in Hospital
[2016-12-31 17:52] LABS: HEMATOCRIT 22.6 % (36.0-47.0); HGB HCT DIFFERENCE 1.4; MEAN CORPUSCULAR HEMOGLOBIN 34.9 pg (27.0-33.4); MEAN CORPUSCULAR HGB CONC 35.3 g/dL (32.0-36.0); MEAN CORPUSCULAR VOLUME 99 fl (80-97); RED BLOOD COUNT 2.29 10^6/uL (3.72-5.28); RED CELL DISTRIBUTION WIDTH 11.9 % (11.5-14.0)
[2016-12-31] MEDS ORDERED: CARBAMAZEPINE 200 MG TAB.SR.12H PO ONE (22:07)
[2016-12-31] MEDS: QUETIAPINE FUMARATE 100 MG TABLET PO SCH (22:10)
[2017-01-01] MEDS: POTASSI CL 20 MEQ/D5-1/2NS 1L 1,000 ML IV PRN ×4 (04:26→22:41)
[2017-01-01] MEDS: METRONIDAZOLE 500 MG/NS RTU 100 ML IV SCH ×3 (05:48→22:41)
[2017-01-01] MEDS: VANCOMYCIN HCL INJ 500 MG VIAL PO SCH ×3 (05:48→17:55)
[2017-01-01] MEDS ORDERED: DEXTROSE 50%-WATER 25 GM/50 ML DISP.SYRIN IV PRN ×2 (07:18)
[2017-01-01] MEDS ORDERED: GLUCAGON,HUMAN RECOMB 1 MG INJ SUBCUT PRN (07:18)
[2017-01-01] MEDS ORDERED: DEXTROSE 40% GEL 15 GM TUBE PO PRN ×2 (07:18)
[2017-01-01 07:37] LABS: ABSOLUTE EOSINOPHILS # (AUTO) 0.1 10^3/uL (0.0-0.6); ABSOLUTE LYMPHOCYTES (AUTO) 2.1 10^3/uL (0.5-4.7); ABSOLUTE MONOCYTES (AUTO) 0.7 10^3/uL (0.1-1.4); ABSOLUTE NEUT (AUTO) 5.6 10^3/uL (1.7-8.2); BASOPHILS % (AUTO) 0.5 % (0-2); EOSINOPHILS % (AUTO) 1.6 % (0-6); HEMATOCRIT 22.3 % (36.0-47.0); HGB HCT DIFFERENCE 1.4; LYMPHOCYTES % (AUTO) 24.6 % (13-45); MEAN CORPUSCULAR HEMOGLOBIN 35.3 pg (27.0-33.4); MEAN CORPUSCULAR HGB CONC 35.4 g/dL (32.0-36.0); MEAN CORPUSCULAR VOLUME 100 fl (80-97); MONOCYTES % (AUTO) 8.1 % (3-13); RED BLOOD COUNT 2.24 10^6/uL (3.72-5.28); RED CELL DISTRIBUTION WIDTH 12.1 % (11.5-14.0); SEGMENTED NEUTROPHILS % (AUTO) 65.2 % (42-78); WHITE BLOOD COUNT 8.6 10^3/uL (4.0-10.5)
[2017-01-01 07:40] LABS: ANION GAP 8 (5-19); BLOOD UREA NITROGEN 3 mg/dL (7-20); CARBON DIOXIDE 25 mmol/L (22-30); CHLORIDE 111 mmol/L (98-107); CREATININE RESULT 0.57 mg/dL (0.52-1.25); GLUCOSE 105 mg/dL (75-110); PHOSPHORUS 3.3 mg/dL (2.5-4.5); POTASSIUM 3.6 mmol/L (3.6-5.0); SODIUM 143.8 mmol/L (137-145)
[2017-01-01 07:50] LABS: HEMOGLOBIN 7.9 g/dL (12.0-15.5)
--- NOTE | 2017-01-01 09:14 | PDOC PROGRESS REPORT ---
Subjective Progress Note for:: 01/01/17 Subjective:: Patient complaining of some back pain. Did have some nausea and was put back to n.p.o. She is voiding Physical Exam Vital Signs: Temp Pulse Resp BP Pulse Ox 98.1 F 73 16 121/50 L 99 01/01/17 07:26 01/01/17 07:26 01/01/17 07:26 01/01/17 07:26 01/01/17 07:26 Intake & Output 12/31/16 01/01/17 01/02/17 06:59 06:59 06:59 Intake Total 2790 3565 Output Total 600 1700 Balance 2190 1865 Weight 66.5 kg 66.5 kg General appearance: PRESENT: no acute distress GI/Abdominal exam: PRESENT: other - Soft, Nontender, no peritoneal signs no rigidity. No tenderness. Results Laboratory Results: 01/01/17 06:37 01/01/17 06:37 12/31/16 01/01/17 01/01/17 17:25 06:37 06:37 WBC 10.0 8.6 RBC 2.29 L 2.24 L Hgb 8.0 L 7.9 L Hct 22.6 L 22.3 L MCV 99 H 100 H MCH 34.9 H 35.3 H MCHC 35.3 35.4 RDW 11.9 12.1 Plt Count 215 237 Seg Neutrophils % 65.2 Lymphocytes % 24.6 Monocytes % 8.1 Eosinophils % 1.6 Basophils % 0.5 Absolute Neutrophils 5.6 Absolute Lymphocytes 2.1 Absolute Monocytes 0.7 Absolute Eosinophils 0.1 Absolute Basophils 0.0 Sodium 143.8 Potassium 3.6 Chloride 111 H Carbon Dioxide 25 Anion Gap 8 BUN 3 L Creatinine 0.57 Est GFR ( Amer) > 60 Est GFR (Non-Af Amer) > 60 Glucose 105 Calcium 8.0 L Phosphorus 3.3 Magnesium 2.0 Impressions: Acute Abdomen Series 12/29/16 14:09 IMPRESSION: Nonspecific abdomen. Assessment & Plan - Diagnosis (1) C. difficile colitis Is this a current diagnosis for this admission?: Yes Plan: Patient appears clinically improved although not resolved of her infectious diarrhea. Her leukocytosis has improved. Her physical exam is completely benign Recommendations: 1. I spoke with Dr. Butler's morning. If the patient continues on a stable path, we will resume p.o. intake 2. No indication for surgical intervention at this time.
--- NOTE | 2017-01-01 09:17 | PDOC PROGRESS REPORT ---
Subjective Subjective:: Patient complaining of some back pain. Did have some nausea and was put back to n.p.o. She is voiding Physical Exam Vital Signs: Temp Pulse Resp BP Pulse Ox 98.1 F 73 16 121/50 L 99 01/01/17 07:26 01/01/17 07:26 01/01/17 07:26 01/01/17 07:26 01/01/17 07:26 Intake & Output 12/31/16 01/01/17 01/02/17 06:59 06:59 06:59 Intake Total 2790 3565 Output Total 600 1700 Balance 2190 1865 Weight 66.5 kg 66.5 kg Results Laboratory Results: 01/01/17 06:37 01/01/17 06:37 12/31/16 01/01/17 01/01/17 17:25 06:37 06:37 WBC 10.0 8.6 RBC 2.29 L 2.24 L Hgb 8.0 L 7.9 L Hct 22.6 L 22.3 L MCV 99 H 100 H MCH 34.9 H 35.3 H MCHC 35.3 35.4 RDW 11.9 12.1 Plt Count 215 237 Seg Neutrophils % 65.2 Lymphocytes % 24.6 Monocytes % 8.1 Eosinophils % 1.6 Basophils % 0.5 Absolute Neutrophils 5.6 Absolute Lymphocytes 2.1 Absolute Monocytes 0.7 Absolute Eosinophils 0.1 Absolute Basophils 0.0 Sodium 143.8 Potassium 3.6 Chloride 111 H Carbon Dioxide 25 Anion Gap 8 BUN 3 L Creatinine 0.57 Est GFR ( Amer) > 60 Est GFR (Non-Af Amer) > 60 Glucose 105 Calcium 8.0 L Phosphorus 3.3 Magnesium 2.0 Impressions: Acute Abdomen Series 12/29/16 14:09 IMPRESSION: Nonspecific abdomen. Assessment & Plan - Diagnosis (1) C. difficile colitis Is this a current diagnosis for this admission?: Yes Plan: Patient appears clinically improved although not resolved of her infectious diarrhea. Her leukocytosis has improved. Her physical exam is completely benign Recommendations: 1. I spoke with Dr. Butler's morning. If the patient continues on a stable path, we will resume p.o. intake 2. No indication for surgical intervention at this time.
[2017-01-01] MEDS: ONDANSETRON HCL INJ/PF 4 MG/2 ML SDV IV PRN (09:49)
[2017-01-01] MEDS: MORPHINE SULFATE 10 MG/ML INJ IV PRN ×2 (09:54→22:41)
--- NOTE | 2017-01-01 10:44 | PDOC PROGRESS REPORT ---
Subjective Progress Note for:: 01/01/17 Subjective:: The patient presented to the emergency department 4 days ago with nausea, vomiting and bloody diarrhea. She was discharged home on Flagyl and ciprofloxacin. Her symptoms persisted and she represented and was admitted 3 nights ago. Within the first 24 hours of admission the patient had a significant drop in hemoglobin and hematocrit. Her disease has been associated with significant bright red blood per rectum. Her hemoglobin and hematocrit now appear to be stable and the patient is no longer passing bright red blood per rectum. Rectal exam per sc on 12/30/16 did not demonstrate any BRBPR. She did have an abnormal CT scan of the abdomen and pelvis when she first came into the emergency department showing diffuse colitis concerning for toxic megacolon. Surgery was consulted. Surgery is following very closely. She continues to have a fairly benign abdomen. At this time, she does not require surgery. The patient does continue to have a low hemoglobin and hematocrit. However, her labs are only drifting down slowly at this point which I think is dilutional. The patient has not yet received a transfusion. She is having diarrhea with tarry stool but no bright red blood. Occasionally, she will have nausea without vomiting associated with p.o. intake. Physical Exam Vital Signs: Temp Pulse Resp BP Pulse Ox 98.1 F 73 16 121/50 L 99 01/01/17 07:26 01/01/17 07:26 01/01/17 07:26 01/01/17 07:26 01/01/17 07:26 Intake & Output 12/31/16 01/01/17 01/02/17 06:59 06:59 06:59 Intake Total 2790 3565 Output Total 600 1700 Balance 2190 1865 Weight 66.5 kg 66.5 kg Additional comments: The patient was in good spirits this morning. She actually got up and took a shower without any difficulty. She states that she does not have any abdominal pain at rest. She does have pain with palpation and with moving around but overall her pain is getting better. Her cognition and mentation are completely normal. Her lungs are clear to auscultation bilaterally. Her cardiac exam demonstrates a regular rate and rhythm without murmurs, gallops or rubs. The abdomen is soft and flat. Bowel sounds are present. Bowel sounds are normo active. The patient does not have guarding or rebound. She does have diffuse pain with palpation but I am able to palpate deeper today. The lower extremities demonstrate only trace edema which is symmetrical in both lower extremities. The skin is noted to be warm, dry and intact without lesions or rashes. Results Laboratory Results: 01/01/17 06:37 01/01/17 06:37 12/31/16 01/01/17 01/01/17 17:25 06:37 06:37 WBC 10.0 8.6 RBC 2.29 L 2.24 L Hgb 8.0 L 7.9 L Hct 22.6 L 22.3 L MCV 99 H 100 H MCH 34.9 H 35.3 H MCHC 35.3 35.4 RDW 11.9 12.1 Plt Count 215 237 Seg Neutrophils % 65.2 Lymphocytes % 24.6 Monocytes % 8.1 Eosinophils % 1.6 Basophils % 0.5 Absolute Neutrophils 5.6 Absolute Lymphocytes 2.1 Absolute Monocytes 0.7 Absolute Eosinophils 0.1 Absolute Basophils 0.0 Sodium 143.8 Potassium 3.6 Chloride 111 H Carbon Dioxide 25 Anion Gap 8 BUN 3 L Creatinine 0.57 Est GFR ( Amer) > 60 Est GFR (Non-Af Amer) > 60 Glucose 105 Calcium 8.0 L Phosphorus 3.3 Magnesium 2.0 Impressions: Acute Abdomen Series 12/29/16 14:09 IMPRESSION: Nonspecific abdomen. Assessment & Plan - Diagnosis (1) Anemia Qualifiers: Anemia type: unspecified type Qualified Code(s): D64.9 - Anemia, unspecified Is this a current diagnosis for this admission?: Yes Plan: We were following hemoglobins every 12 hours. As there has not been any significant change in the last 48 hours I will change to daily CBC. Transfuse for hemoglobin less than 7 unless bright red bleeding starts. If bright red bleeding starts I would transfuse immediately -if bright red bleeding starts I would anticipate the patient's blood loss would lead to Hgb less than 7. (2) Colitis Is this a current diagnosis for this admission?: Yes Plan: Patient is positive for C. difficile. She is receiving IV Flagyl and oral vancomycin. Surgery is following closely. (3) HTN (hypertension) Is this a current diagnosis for this admission?: Yes Plan: Blood pressure is stable today. Patient is not currently on any antihypertensives. (4) Nausea and vomiting Qualifiers: Vomiting Intractability: unspecified Is this a current diagnosis for this admission?: Yes Plan: Improved. (5) Seizure disorder Is this a current diagnosis for this admission?: Yes Plan: Continue Tegretol (6) Tobacco abuse Is this a current diagnosis for this admission?: Yes (7) Tobacco abuse counseling Is this a current diagnosis for this admission?: Yes Plan: Patient has been counseled on the need to abstain from smoking. (8) Vomiting and diarrhea Is this a current diagnosis for this admission?: Yes Plan: This is due to C. difficile colitis. (9) Hypokalemia Is this a current diagnosis for this admission?: Yes Plan: Patient is receiving intravenous supplementation. We will follow labs closely. - Time Time Spent with patient: 25-34 minutes - Inpatient Certification Medical Necessity: Need Close Monitoring Due to Risk of Patient Decompensation, Need For IV Fluids, Need for IV Antibiotics, Risk of Complication if Not Cared For in Hospital
[2017-01-01] MEDS: CARBAMAZEPINE 200 MG TAB.SR.12H PO SCH ×2 (12:34→22:43)
[2017-01-01] MEDS: QUETIAPINE FUMARATE 100 MG TABLET PO SCH (22:42)
[2017-01-02] MEDS: VANCOMYCIN HCL INJ 500 MG VIAL PO SCH ×4 (00:07→18:12)
[2017-01-02] MEDS: METRONIDAZOLE 500 MG/NS RTU 100 ML IV SCH ×3 (06:31→21:47)
[2017-01-02] MEDS: POTASSI CL 20 MEQ/D5-1/2NS 1L 1,000 ML IV PRN (06:49)
[2017-01-02] MEDS: PROMETHAZINE HCL INJ 25 MG/1 ML VIAL IV PRN (08:55)
[2017-01-02] MEDS: CARBAMAZEPINE 200 MG TAB.SR.12H PO SCH ×2 (10:47→21:48)
[2017-01-02] MEDS: MORPHINE SULFATE 10 MG/ML INJ IV PRN (12:31)
--- NOTE | 2017-01-02 13:28 | PDOC PROGRESS REPORT ---
Subjective Progress Note for:: 01/02/17 Subjective:: Feeling much better overall today. Noted to have 4 loose stools over last 24 hours. This is a decrease in quantity and character of stool since admission. Continues to have RLQ abdominal pain. Denies fevers, chills, vomiting. Has occasional nausea. Tolerating coffee and clear liquid diet. Requesting to advance diet. OOB to bedside chair this AM. Physical Exam Vital Signs: Temp Pulse Resp BP Pulse Ox 98.4 F 70 18 134/73 H 99 01/02/17 11:13 01/02/17 11:13 01/02/17 11:13 01/02/17 11:13 01/02/17 11:13 Intake & Output 01/01/17 01/02/17 01/03/17 06:59 06:59 06:59 Intake Total 3565 4124 Output Total 1700 900 Balance 1865 3224 Weight 66.5 kg 66.5 kg General appearance: PRESENT: no acute distress, well-developed, well-nourished Head exam: PRESENT: atraumatic, normocephalic Eye exam: PRESENT: conjunctiva pink, EOMI, PERRLA. ABSENT: scleral icterus Mouth exam: PRESENT: moist Neck exam: ABSENT: carotid bruit, JVD, lymphadenopathy, thyromegaly Respiratory exam: PRESENT: clear to auscultation yoana. ABSENT: rales, rhonchi, wheezes Cardiovascular exam: PRESENT: RRR. ABSENT: diastolic murmur, rubs, systolic murmur Vascular exam: PRESENT: normal capillary refill GI/Abdominal exam: PRESENT: normal bowel sounds, soft, tenderness - RLQ pain. ABSENT: distended, guarding, mass, organolmegaly, rebound Rectal exam: PRESENT: deferred Extremities exam: PRESENT: full ROM. ABSENT: calf tenderness, clubbing, pedal edema Neurological exam: PRESENT: alert, awake, oriented to person, oriented to place , oriented to time, oriented to situation, CN II-XII grossly intact. ABSENT: motor sensory deficit Psychiatric exam: PRESENT: appropriate affect, normal mood. ABSENT: homicidal ideation, suicidal ideation Skin exam: PRESENT: dry, intact, warm. ABSENT: cyanosis, rash Results Laboratory Results: 01/01/17 06:37 01/01/17 06:37 12/30/16 11:00 Stool - Stool - Final 12/30/16 11:00 Stool - Stool Stool Culture - Final C.albicans/C.dubliniensis Impressions: Acute Abdomen Series 12/29/16 14:09 IMPRESSION: Nonspecific abdomen. Assessment & Plan - Diagnosis (1) C. difficile colitis Is this a current diagnosis for this admission?: Yes Plan: CDI secondary to previous antibiotics use. Improving symptomatically. Plan - Advance diet to full liquid diet - Continue PO Vanc and IV Flagyl, likely will need 14 day course - PRN Anti-emetics and pain meds (2) Nausea and vomiting Qualifiers: Vomiting Intractability: unspecified Is this a current diagnosis for this admission?: Yes Plan: Improving, continue Zofran PRN (3) Anemia Qualifiers: Anemia type: unspecified type Qualified Code(s): D64.9 - Anemia, unspecified Is this a current diagnosis for this admission?: Yes Plan: Macrocytic Anemia, Hg 7.9 today, which is stable since admission. No active signs or symptoms of bleeding - Will check folate and B12 with AM labs. - CTM H&H q24 hours (4) Seizure disorder Is this a current diagnosis for this admission?: Yes Plan: Stable, continue home medications - Time Time Spent with patient: 15-24 minutes Critical Time spent with patient: 15-24 minutes Anticipated discharge: Home with Homehealth Within: within 48 hours
[2017-01-02] MEDS: QUETIAPINE FUMARATE 100 MG TABLET PO SCH (21:48)
[2017-01-03] MEDS: VANCOMYCIN HCL INJ 500 MG VIAL PO SCH ×5 (00:02→23:31)
[2017-01-03] MEDS: POTASSI CL 20 MEQ/D5-1/2NS 1L 1,000 ML IV PRN ×3 (01:23→18:50)
[2017-01-03] MEDS: MORPHINE SULFATE 10 MG/ML INJ IV PRN (01:59)
[2017-01-03] MEDS: METRONIDAZOLE 500 MG/NS RTU 100 ML IV SCH ×3 (06:10→21:10)
[2017-01-03 06:31] LABS: HEMATOCRIT 24.5 % (36.0-47.0); HEMOGLOBIN 8.7 g/dL (12.0-15.5); HGB HCT DIFFERENCE 1.6; MEAN CORPUSCULAR HEMOGLOBIN 35.2 pg (27.0-33.4); MEAN CORPUSCULAR HGB CONC 35.4 g/dL (32.0-36.0); MEAN CORPUSCULAR VOLUME 99 fl (80-97); RED BLOOD COUNT 2.47 10^6/uL (3.72-5.28); WHITE BLOOD COUNT 7.3 10^3/uL (4.0-10.5)
[2017-01-03 06:40] LABS: ANION GAP 7 (5-19); CALCIUM 8.3 mg/dL (8.4-10.2); CARBON DIOXIDE 25 mmol/L (22-30); CHLORIDE 110 mmol/L (98-107); CREATININE RESULT 0.63 mg/dL (0.52-1.25); GLUCOSE 98 mg/dL (75-110); POTASSIUM 4.4 mmol/L (3.6-5.0); SODIUM 141.6 mmol/L (137-145)
[2017-01-03 06:42] LABS: BLOOD UREA NITROGEN < 2 mg/dL (7-20)
[2017-01-03] MEDS: CARBAMAZEPINE 200 MG TAB.SR.12H PO SCH ×2 (09:12→21:10)
[2017-01-03] MEDS: ACETAMINOPHEN 325 MG TABLET PO PRN ×2 (09:13→18:49)
[2017-01-03] MEDS: PROMETHAZINE HCL INJ 25 MG/1 ML VIAL IV PRN (15:47)
[2017-01-03] MEDS: QUETIAPINE FUMARATE 100 MG TABLET PO SCH (21:10)
--- NOTE | 2017-01-03 23:44 | PDOC PROGRESS REPORT ---
Subjective Progress Note for:: 01/03/17 Subjective:: Denies anymore abdominal pains Physical Exam Vital Signs: Temp Pulse Resp BP Pulse Ox 97.8 F 74 16 138/80 H 100 01/03/17 20:16 01/03/17 20:16 01/03/17 20:16 01/03/17 20:16 01/03/17 20:16 Intake & Output 01/02/17 01/03/17 01/04/17 06:59 06:59 06:59 Intake Total 4124 4383 1920 Output Total 900 1900 1250 Balance 3224 2483 670 Weight 66.5 kg 66.5 kg Exam: Minimal diffuse tenderness. Definitely much less today Results Laboratory Results: 01/03/17 05:32 01/03/17 05:32 01/03/17 01/03/17 05:32 05:32 WBC 7.3 RBC 2.47 L Hgb 8.7 L Hct 24.5 L MCV 99 H MCH 35.2 H MCHC 35.4 RDW 12.0 Plt Count 289 Sodium 141.6 Potassium 4.4 Chloride 110 H Carbon Dioxide 25 Anion Gap 7 BUN < 2 L Creatinine 0.63 Est GFR ( Amer) > 60 Est GFR (Non-Af Amer) > 60 Glucose 98 Calcium 8.3 L Impressions: Acute Abdomen Series 12/29/16 14:09 IMPRESSION: Nonspecific abdomen. Assessment & Plan - Diagnosis (1) C. difficile colitis Is this a current diagnosis for this admission?: Yes - Time Time Spent with patient: 15-24 minutes - Plan Summary Plan Summary: Continue flagyl and Vanco for total 14 days OK to gradually increase diet. Will follow up prn
[2017-01-04] MEDS ORDERED: POTASSI CL 20 MEQ/D5-1/2NS 1L 1,000 ML IV ONE (02:47)
[2017-01-04] MEDS: ACETAMINOPHEN 325 MG TABLET PO PRN (05:11)
[2017-01-04] MEDS: VANCOMYCIN HCL INJ 500 MG VIAL PO SCH ×2 (05:12→11:44)
[2017-01-04] MEDS: METRONIDAZOLE 500 MG TABLET PO SCH ×2 (05:52→11:43)
--- NOTE | 2017-01-04 10:28 | PDOC DISCHARGE SUMMARY ---
General - Admit/Disc Date/PCP Admission Date/Primary Care Provider: 12/29/16 16:14 VERA MAYORGA MD Discharge Date: 01/04/17 - Discharge Diagnosis (1) Sepsis Is this a current diagnosis for this admission?: Yes Summary: Secondary to C. Diff Colitis: Pt was admitted to the hospital and placed on IVFs and Antibiotics. Surgery was consulted due to occult positive stool. (2) Hyponatremia Is this a current diagnosis for this admission?: Yes Summary: Secondary to Volume depletion. (3) Volume depletion Is this a current diagnosis for this admission?: Yes Summary: Pt given IVFs. (4) Hypotension Is this a current diagnosis for this admission?: Yes Summary: in setting of Sepsis: pt was placed on IVFs and antibiotics. (5) Anemia Is this a current diagnosis for this admission?: Yes Summary: Secondary to Colitis. Pt will need to follow up with GI/Surgery for C-scope in the future. (6) C. difficile colitis Is this a current diagnosis for this admission?: Yes Summary: Pt was placed on Flagyl and Vanco. Pt was discharged home on Vanco. (7) Hypokalemia Is this a current diagnosis for this admission?: Yes Summary: Pt received replacement. - Additional Information Resuscitation Status: Full Code Discharge Diet: Regular Discharge Activity: Activity As Tolerated Home Medications: Atorvastatin Calcium [Lipitor 10 mg Tablet] 10 mg PO QHS 12/29/16 Butalb/Acetaminophen/Caffeine [Mutqhh-Nagmgtcg-Rwko 50-325-40] 1 tab PO Q8HP PRN 12/29/16 Carbamazepine [Carbamazepine ER] 400 mg PO Q12 12/29/16 Lisinopril/Hydrochlorothiazide [Lisinopril-Hctz 20-12.5 mg Tab] 1 tab PO DAILY 12/29/16 Metoprolol Succinate [Toprol Xl 50 mg Tab.sr] 50 mg PO DAILY 12/29/16 Omeprazole 20 mg PO DAILY 12/29/16 Quetiapine Fumarate [Seroquel] 100 mg PO QHS 12/29/16 Ferrous Sulfate [Feosol 325 mg Tablet] 325 mg PO MEALS #90 tab 01/04/17 Vancomycin HCl [Vancocin HCl] 125 mg PO Q6H 14 Days #56 capsule 01/04/17 History of Present Illness Patient complains of: Nausea and vomiting. History of Present Illness: RUY SIMS is a 56 year old female presented with nausea and vomiting for the last few days. Pt states that she was having abd pain as well. Pt had a CT of abd which demonstrated inflammation of the sigmoid colon. Pt was placed on Cipro and Flagyl during first visit to the ER. Pt returned due to worsening of symptoms. Pt was found to be septic secondary to C. diff Colitis. Pt was placed on Vanco and Flagyl along with IVFs. Pt's diarrhea resolved during hospitalization. Pt was noted to have anemia which most likely related to C. diff. Pt was seen by surgery during hospital stay. Physical Exam Vital Signs: Temp Pulse Resp BP Pulse Ox 98.3 F 72 16 136/74 H 100 01/04/17 00:13 01/04/17 00:13 01/04/17 00:13 01/04/17 00:13 01/04/17 00:13 Intake & Output 01/03/17 01/04/17 01/05/17 06:59 06:59 06:59 Intake Total 4383 3860 Output Total 1900 1950 Balance 2483 1910 Weight 66.5 kg 66.5 kg General appearance: PRESENT: no acute distress, well-developed, well-nourished Head exam: PRESENT: atraumatic, normocephalic Eye exam: PRESENT: conjunctiva pink, EOMI, PERRLA. ABSENT: scleral icterus Ear exam: PRESENT: normal external ear exam Mouth exam: PRESENT: moist, tongue midline Neck exam: ABSENT: carotid bruit, JVD, lymphadenopathy, thyromegaly Respiratory exam: PRESENT: clear to auscultation yoana. ABSENT: rales, rhonchi, wheezes Cardiovascular exam: PRESENT: RRR. ABSENT: diastolic murmur, rubs, systolic murmur Pulses: PRESENT: normal dorsalis pedis pul Vascular exam: PRESENT: normal capillary refill GI/Abdominal exam: PRESENT: normal bowel sounds, soft. ABSENT: distended, guarding, mass, organolmegaly, rebound, tenderness Rectal exam: PRESENT: deferred Extremities exam: PRESENT: full ROM. ABSENT: calf tenderness, clubbing, pedal edema Neurological exam: PRESENT: alert, awake, oriented to person, oriented to place , oriented to time, oriented to situation, CN II-XII grossly intact. ABSENT: motor sensory deficit Skin exam: PRESENT: dry, intact, warm. ABSENT: cyanosis, rash Results Laboratory Results: 01/03/17 05:32 01/03/17 05:32 Impressions: Acute Abdomen Series 12/29/16 14:09 IMPRESSION: Nonspecific abdomen. Plan Time Spent: Greater than 30 Minutes
[2017-01-04] MEDS: CARBAMAZEPINE 200 MG TAB.SR.12H PO SCH (11:00)
[2017-01-04 12:01] VITALS: BP 147/65
== END 2017-01-04 12:15 | disposition home or self-care (01) | DRG 872 ==
LOC: ER 13:58 → EH 16:14 → UNDOADMIN 16:26 → 4S 17:50
PROVIDERS: ADMIT Family Medicine; ATTEND Family Medicine
DX: A41.9 Sepsis, unspecified organism (principal); A04.72 Enterocolitis due to Clostridium difficile, not specified as recurrent; E87.1 Hypo-osmolality and hyponatremia; E87.6 Hypokalemia; E86.9 Volume depletion, unspecified; E78.5 Hyperlipidemia, unspecified; D64.9 Anemia, unspecified; I10 Essential (primary) hypertension; G40.909 Epilepsy, unspecified, not intractable, without status epilepticus; G43.909 Migraine, unspecified, not intractable, without status migrainosus; F32.9 Major depressive disorder, single episode, unspecified; F17.210 Nicotine dependence, cigarettes, uncomplicated; Z79.899 Other long term (current) drug therapy; Z90.710 Acquired absence of both cervix and uterus; Z88.0 Allergy status to penicillin
CPT/HCPCS: 36415; 74022; 80048; 80053; 81001; 82272; 83690; 83735; 84100; 85025; 85027; 85610; 85730; 86850; 86900; 86901; 86920; 87045; 87205; 87493; 96361; 96374; 96375; 99285; J1650; J1885; J2270; J2405; J2550; J3370; J3475; J3480; J3490; J7030

== ENCOUNTER → 2017-05-10 | Outpatient (CLI) | payer MEDICAID ==
--- NOTE | 2017-05-11 18:23 | WOMENS IMAGING REPORT ---
EXAM DESCRIPTION: BILAT SCREENING MAMMO W/CAD COMPLETED DATE/TIME: 05/10/2017 12:54 pm REASON FOR STUDY: ROUTINE SCREENING; Z12.31 Z12.31 ENCNTR SCREEN MAMMOGRAM FOR MALIGNANT NEOPLASM O F DARIUS COMPARISON: 2013, 2016 TECHNIQUE: Standard craniocaudal and mediolateral oblique views of each breast recorded using Streamezzoa l acquisition. LIMITATIONS: None. FINDINGS: No masses, calcifications or architectural distortion. No areas of suspicion. Read with the assistance of CAD. .[facility] - R2 Cenova Version 1.3 .[facility] - R2 Cenova Version 1.3 .[facility] - R2 Cenova Version 2.4 .[facility] - R2 Cenova Version 2.4 .[facility] - R2 Plumber Gasfitter Version 9.2 IMPRESSION: NORMAL MAMMOGRAM. BIRADS 1. BREAST DENSITY: b. There are scattered areas of fibroglandular density. BIRAD: 1 NEGATIVE RECOMMENDATION: ROUTINE SCREENING Please continue yearly bilateral screening in April 2018. Consider bilateral screening tomosynthesis COMMENT: The patient has been notified of the results by letter per SA requirements. Additional no tification policies are in place for contacting patient with suspicious or incomplete findings. Quality ID #[id number]: The [employer] recommends an annual screening mammogram for women aged 40 years or over. This facility utilizes a reminder system to ensure that all patients receive reminder letters, and/or direct phone calls for appointments. This includes reminders for routine scr eening mammograms, diagnostic mammograms, or other Breast Imaging Interventions when appropriate. Th is patient will be placed in the appropriate reminder system. The [employer] (ACR) has developed recommendations for screening MRI of the breast s in certain patient populations, to be used in conjunction with mammography. Breast MRI surveillanc e may be appropriate for women with more than 20% lifetime risk of developing breast cancer as deter mined by genetic testing, significant family history of the disease, or history of mantle radiation f or Hodgkins Disease. ACR Practice Guidelines 2008. TECHNICAL DOCUMENTATION: FINDING NUMBER: (1) ASSESSMENT: (1) JOB ID: [id number] [employer]- All Rights Reserved Reading location - IP/workstation name: [email or web address]
== END ==
LOC: WI 12:38
PROVIDERS: ATTEND Internal Medicine
DX: Z12.31 Encounter for screening mammogram for malignant neoplasm of breast (principal)
CPT/HCPCS: 77067

== ENCOUNTER 2017-06-22 17:48 | Emergency (ER) | payer MEDICAID ==
[2017-06-22 18:02] VITALS: BP 127/75
--- NOTE | 2017-06-22 18:11 | ER Document Report ---
HPI - HPI Pain Level: 4 Notes: Patient is a 57-year-old female with a past medical history aside from tobacco abuse who presents to the ED complaining of body aches, intermittent sore throat , dry nonproductive cough 3 days. Patient states that she is still eating and drinking without difficulties. She is urinating normally and having normal bowel movements. Patient has not been using any imhq-pbs-[id number] meds for symptoms. Patient states that she is around 2 children that have been sick recently with something similar. No other concerns or complaints at this time. Denies any headache, fever, neck pain, URI, chest pain, palpitations, syncope , shortness of breath, wheeze, dyspnea, abdominal pain, nausea/vomiting/diarrhea , urinary retention, dysuria, hematuria, loss of control of bowel or bladder, numbness/tingling, saddle anesthesia, muscle paralysis/weakness, or rash. - ROS Systems Reviewed and Negative: Yes All other systems reviewed and negative - REPRODUCTIVE Reproductive: DENIES: : Past Medical History - Social History Smoking Status: Current Every Day Smoker Family History: Reviewed & Not Pertinent - Past Medical History Cardiac Medical History: Reports: Hx Hypercholesterolemia, Hx Hypertension Denies: Hx Coronary Artery Disease, Hx Heart Attack Pulmonary Medical History: Denies: Hx Asthma, Hx Bronchitis, Hx COPD, Hx Pneumonia Neurological Medical History: Reports: Hx Migraine, Hx Seizures. Denies: Hx Cerebrovascular Accident Renal/ Medical History: Denies: Hx Peritoneal Dialysis GI Medical History: Denies: Hx Hepatitis, Hx Hiatal Hernia, Hx Ulcer Musculoskeltal Medical History: Denies Hx Arthritis Psychiatric Medical History: Reports: Hx Anxiety, Hx Depression Infectious Medical History: Denies: Hx Hepatitis Past Surgical History: Reports: Hx Hysterectomy, Other - Clipping of cerebral aneurysm. Denies: Hx Mastectomy, Hx Open Heart Surgery, Hx Pacemaker - Immunizations Hx Diphtheria, Pertussis, Tetanus Vaccination: Yes Vertical Provider Document - CONSTITUTIONAL Agree With Documented VS: Yes Notes: PHYSICAL EXAMINATION: GENERAL: Well-appearing, well-nourished and in no acute distress. A&Ox4. Answers questions appropriately. Moves comfortably w/o notable distress HEAD: Atraumatic, normocephalic. EYES: Pupils equal round and reactive to light, extraocular movements intact, sclera anicteric, conjunctiva are normal. ENT: EAC clear b/l. TM's intact b/l without erythema, fluid, or perforation. Nares patent and without discharge. oropharynx no erythema without exudates. No tonsilar hypertrophy without erythema or exudate. No palatine shift. Uvula midline. No tongue protrusion. No drooling, hoarseness, or airway compromise. Moist mucous membranes. No sinus tenderness. NECK: Normal range of motion, supple without lymphadenopathy. No rigidity/ meningismus. LUNGS: Breath sounds clear to auscultation bilaterally and equal. No wheezes rales or rhonchi. No retractions HEART: Regular rate and rhythm without murmurs, rubs, gallops. ABDOMEN: Soft, nontender, nondistended abdomen. No guarding, no rebound. No masses appreciated. Normal bowel sounds present. No CVA tenderness bilaterally. No hepatosplenomegaly. Ext: no edema. NEUROLOGICAL: Normal speech, normal gait. Normal sensory, motor exams PSYCH: Normal mood, normal affect. SKIN: Warm, Dry, normal turgor, no rashes or lesions noted. - INFECTION CONTROL TRAVEL OUTSIDE OF THE [place] IN LAST 30 DAYS: No Course - Re-evaluation Re-evalutation: 06/22/17 18:45 Patient is an afebrile, well-hydrated, 57-year-old female who presents to the ED with an acute bronchitis, suspect viral. Vitals are acceptable. PE is otherwise unremarkable. No labs or imaging warranted at this time based on H& P. Patient has no significant cardiopulmonary or immunocompromised medical conditions. Patient's lungs are clear to auscultation bilaterally without tachycardia, hypoxia, or tachypnea. Patient is tolerating p.o. without any difficulties. Low suspicion for any meningitis, sepsis, peritonsillar/ pharyngeal abscess, respiratory compromise, severe dehydration, or other emergent systemic condition at this time. Patient is aware this condition can change from initial presentation and she needs to monitor symptoms closely. I will send her home with a prescription for Tessalon. Toradol given IM today. Conservative measures otherwise for symptoms. Recheck with your PCM in 3-5 days. Return to the ED with any worsening/concerning symptoms otherwise as reviewed in discharge. Patient is in agreement. - Vital Signs Vital signs: Temp Pulse Resp BP Pulse Ox 97.7 F 79 18 127/75 H 98 06/22/17 18:00 06/22/17 18:00 06/22/17 18:00 06/22/17 18:00 06/22/17 18:00 Discharge - Discharge Clinical Impression: Viral syndrome Acute bronchitis Qualifiers: Bronchitis organism: unspecified organism Qualified Code(s): J20.9 - Acute bronchitis, unspecified Condition: Stable Disposition: HOME, SELF-CARE Instructions: Viral Syndrome ([facility]), Bronchitis ([facility]) Additional Instructions: Maintain adequate fluid intake Take meds as directed tylenol/ibuprofen as needed over the counter cold medication as needed for symptoms Humidified air may help Wash your hands regularly Wear a mask when coughing F/u: with your PCM in 3-5 days for a recheck Return to the ED with any fever, worsening pain, chest pain, palpitations, syncope, worsening COTTON, neck pain/stiffness, shortness of breath, wheezing, drooling, trouble swallowing/breathing, abdominal pain, n/v/d, rash, or worsening/concerning symptoms otherwise. Prescriptions: Benzonatate [Tessalon Perle 100 mg Capsule] 100 mg PO Q8HP PRN #15 cap PRN Reason: Forms: Elevated Blood Pressure Referrals: VERA MAYORGA MD [Primary Care Provider] - Follow up in 3-5 days
[2017-06-22] MEDS ORDERED: KETOROLAC TROMETHAMINE INJ/PF 30 MG/1 ML SDV IM ONE (18:34)
--- NOTE | 2017-06-22 18:41 | RADIOLOGY REPORT (SQ) ---
EXAM DESCRIPTION: CHEST 2 VIEWS COMPLETED DATE/TIME: 06/22/2017 6:22 pm REASON FOR STUDY: cough COMPARISON: 11/15/2009 EXAM PARAMETERS: NUMBER OF VIEWS: two views TECHNIQUE: Digital Frontal and Lateral radiographic views of the chest acquired. RADIATION DOSE: NA LIMITATIONS: none FINDINGS: LUNGS AND PLEURA: No opacities, masses or pneumothorax. No pleural effusion. MEDIASTINUM AND HILAR STRUCTURES: No masses or contour abnormalities. HEART AND VASCULAR STRUCTURES: Heart normal size. No evidence for failure. BONES: No acute findings. HARDWARE: None in the chest. OTHER: No other significant finding. IMPRESSION: NO ACUTE RADIOGRAPHIC FINDING IN THE CHEST. TECHNICAL DOCUMENTATION: JOB ID: [id number] [employer]- All Rights Reserved Reading location - IP/workstation name: [email or web address]
== END 2017-06-22 19:03 | disposition home or self-care (01) ==
LOC: ER 17:48
DX: J20.9 Acute bronchitis, unspecified (principal); J02.9 Acute pharyngitis, unspecified; B34.9 Viral infection, unspecified; R05 Cough; F17.200 Nicotine dependence, unspecified, uncomplicated; I10 Essential (primary) hypertension
CPT/HCPCS: 99283; 96372; 71046; J1885

== ENCOUNTER 2017-06-24 16:43 | Emergency (ER) | payer MEDICAID ==
--- NOTE | 2017-06-24 17:05 | ER Document Report ---
ED Medical Screen (RME) - General Chief Complaint: Dizziness Stated Complaint: DIZZY Time Seen by Provider: 06/24/17 17:00 Notes: This 57-year-old female patient comes emergency room complaining of throat hurting worse, neck hurting worse, sweating last night. She was convinced she had a high fever but did not check. She woke up with dizziness today. She is here 2 days ago diagnosed with bronchitis and viral illness. She states she thinks she is dehydrated. She is able to drink water but does not want to therefore she wants to be checked for dehydration. I have greeted and performed a rapid initial assessment of this patient. A comprehensive ED assessment and evaluation of the patient, analysis of test results and completion of the medical decision making process will be conducted by additional ED providers. TRAVEL OUTSIDE OF THE [place] IN LAST 30 DAYS: No - Related Data Allergies/Adverse Reactions: Penicillins Allergy (Intermediate, Verified 06/24/17 16:48) RASH, HIVES, ITCHING Past Medical History - Social History Frequency of alcohol use: None Drug Abuse: None - Past Medical History Cardiac Medical History: Reports: Hx Hypercholesterolemia, Hx Hypertension Denies: Hx Coronary Artery Disease, Hx Heart Attack Pulmonary Medical History: Denies: Hx Asthma, Hx Bronchitis, Hx COPD, Hx Pneumonia Neurological Medical History: Reports: Hx Migraine, Hx Seizures. Denies: Hx Cerebrovascular Accident Renal/ Medical History: Denies: Hx Peritoneal Dialysis GI Medical History: Denies: Hx Hepatitis, Hx Hiatal Hernia, Hx Ulcer Musculoskeltal Medical History: Denies Hx Arthritis Psychiatric Medical History: Reports: Hx Anxiety, Hx Depression Infectious Medical History: Denies: Hx Hepatitis Past Surgical History: Reports: Hx Hysterectomy, Other - Clipping of cerebral aneurysm. Denies: Hx Mastectomy, Hx Open Heart Surgery, Hx Pacemaker - Immunizations Hx Diphtheria, Pertussis, Tetanus Vaccination: Yes History of Influenza Vaccine for 11/2016 - 04/2017 Season: No Physical Exam - Vital signs Vitals: Temp Pulse Resp BP Pulse Ox 97.6 F 72 14 102/85 95 06/24/17 16:55 06/24/17 16:55 06/24/17 16:55 06/24/17 16:55 06/24/17 16:55 Course - Vital Signs Vital signs: Temp Pulse Resp BP Pulse Ox 97.6 F 72 14 102/85 95 06/24/17 16:55 06/24/17 16:55 06/24/17 16:55 06/24/17 16:55 06/24/17 16:55
[2017-06-24 17:43] LABS: ABSOLUTE EOSINOPHILS # (AUTO) 0.1 10^3/uL (0.0-0.6); ABSOLUTE LYMPHOCYTES (AUTO) 1.9 10^3/uL (0.5-4.7); ABSOLUTE MONOCYTES (AUTO) 0.6 10^3/uL (0.1-1.4); BASOPHILS % (AUTO) 0.1 % (0-2); EOSINOPHILS % (AUTO) 0.8 % (0-6); HEMATOCRIT 34.2 % (36.0-47.0); HEMOGLOBIN 11.8 g/dL (12.0-15.5); LYMPHOCYTES % (AUTO) 19.4 % (13-45); MEAN CORPUSCULAR HEMOGLOBIN 33.6 pg (27.0-33.4); MEAN CORPUSCULAR HGB CONC 34.4 g/dL (32.0-36.0); MEAN CORPUSCULAR VOLUME 98 fl (80-97); MONOCYTES % (AUTO) 6.3 % (3-13); PLATELET COUNT 243 10^3/uL (150-450); RED CELL DISTRIBUTION WIDTH 12.3 % (11.5-14.0); SEGMENTED NEUTROPHILS % (AUTO) 73.4 % (42-78); TOTAL CELLS COUNTED % (AUTO) 100 %; WHITE BLOOD COUNT 9.6 10^3/uL (4.0-10.5)
[2017-06-24 17:44] LABS: ALANINE AMINOTRANSFERASE 23 U/L (9-52); ALBUMIN 4.1 g/dL (3.5-5.0); ALKALINE PHOSPHATASE 92 U/L (38-126); ANION GAP 13 (5-19); ASPARTATE AMINO TRANSFERASE 36 U/L (14-36); BILIRUBIN,DIRECT 0.2 mg/dL (0.0-0.4); BILIRUBIN,TOTAL 0.2 mg/dL (0.2-1.3); BLOOD UREA NITROGEN 14 mg/dL (7-20); CALCIUM 8.8 mg/dL (8.4-10.2); CARBON DIOXIDE 27 mmol/L (22-30); CHLORIDE 94 mmol/L (98-107); GLUCOSE 97 mg/dL (75-110); POTASSIUM 3.6 mmol/L (3.6-5.0); TOTAL PROTEIN 7.4 g/dL (6.3-8.2)
[2017-06-24] MEDS ORDERED: IPRATROPIUM/ALBUTEROL 0.5-2.5 MG/3 ML AMPUL NEB ONE (17:48)
[2017-06-24] MEDS ORDERED: DEXAMETHASONE SOD PHOS INJ 10 MG/1 ML VIAL IM ONE (17:48)
--- NOTE | 2017-06-24 17:52 | ER Document Report ---
HPI - HPI Pain Level: 5 Notes: Patient is a 57-year-old female with a past medical history of tobacco abuse who presents to the ED complaining of intermittent body aches, increased sore throat, continued dry nonproductive cough, and now diarrhea over the past 5 days. I saw this patient 2 days ago and diagnosed her with a viral bronchitis and gave her Tessalon. Patient states that she returned because she was developing some of the symptoms to watch for has an increased soreness and not improving symptoms. Patient states that she has been eating and drinking, but does have a decreased p.o. intake. She is urinating normally. Patient states that she has primarily loose stool and not all out diarrhea. Patient was exposed to 2 other sick contacts with similar illness in the family. She has no other concerns or complaints at this time. No other significant past medical history. Denies any headache, fever, current neck pain, chest pain, palpitations, syncope, shortness of breath, wheeze, dyspnea, abdominal pain, nausea/vomiting/diarrhea, urinary retention, dysuria, hematuria, loss of control of bowel or bladder, numbness/tingling, saddle anesthesia, muscle paralysis/weakness, or rash. - ROS Systems Reviewed and Negative: Yes All other systems reviewed and negative - REPRODUCTIVE Reproductive: DENIES: : Past Medical History - Social History Smoking Status: Current Every Day Smoker Frequency of alcohol use: None Drug Abuse: None Family History: Reviewed & Not Pertinent Patient has suicidal ideation: No Patient has homicidal ideation: No - Past Medical History Cardiac Medical History: Reports: Hx Hypercholesterolemia, Hx Hypertension Denies: Hx Coronary Artery Disease, Hx Heart Attack Pulmonary Medical History: Denies: Hx Asthma, Hx Bronchitis, Hx COPD, Hx Pneumonia Neurological Medical History: Reports: Hx Migraine, Hx Seizures. Denies: Hx Cerebrovascular Accident Renal/ Medical History: Denies: Hx Peritoneal Dialysis GI Medical History: Denies: Hx Hepatitis, Hx Hiatal Hernia, Hx Ulcer Musculoskeltal Medical History: Denies Hx Arthritis Psychiatric Medical History: Reports: Hx Anxiety, Hx Depression Infectious Medical History: Denies: Hx Hepatitis Past Surgical History: Reports: Hx Hysterectomy, Other - Clipping of cerebral aneurysm. Denies: Hx Mastectomy, Hx Open Heart Surgery, Hx Pacemaker - Immunizations Hx Diphtheria, Pertussis, Tetanus Vaccination: Yes Vertical Provider Document - CONSTITUTIONAL Agree With Documented VS: Yes Notes: PHYSICAL EXAMINATION: GENERAL: Well-appearing, well-nourished and in no acute distress. A&Ox4. Answers questions appropriately. Moves comfortably w/o notable distress HEAD: Atraumatic, normocephalic. EYES: Pupils equal round and reactive to light, extraocular movements intact, sclera anicteric, conjunctiva are normal. ENT: EAC clear b/l. TM's intact b/l without erythema, fluid, or perforation. Nares patent and with clear discharge. oropharynx mild erythema without exudates. 1+ tonsilar hypertrophy without erythema or exudate. No palatine shift. Uvula midline. No tongue protrusion. No drooling, hoarseness, or airway compromise. Moist mucous membranes. No sinus tenderness. NECK: Normal range of motion, supple without lymphadenopathy. No rigidity/ meningismus. LUNGS: Scant wheezes b/l. No crackles. No retractions HEART: Regular rate and rhythm without murmurs, rubs, gallops. ABDOMEN: Soft, nontender, nondistended abdomen. No guarding, no rebound. No masses appreciated. Normal bowel sounds present. No CVA tenderness bilaterally. NEUROLOGICAL: Normal speech, normal gait. Normal sensory, motor exams PSYCH: Normal mood, normal affect. SKIN: Warm, Dry, normal turgor, no rashes or lesions noted. - INFECTION CONTROL TRAVEL OUTSIDE OF THE [place] IN LAST 30 DAYS: No Course - Re-evaluation Re-evalutation: 06/24/17 18:25 Patient is an afebrile, well-hydrated, 57-year-old female who presents to the ED with an acute URI, suspect viral, and UTI. Vitals are acceptable. PE is otherwise unremarkable. Patient has no significant tachycardia, tachypnea, or hypoxia. CBC, CMP, rapid strep were unremarkable for any acute pathology. Throat culture is pending. See urinalysis results. Urine cultures pending. Patient was given a DuoNeb breathing treatment as well as Decadron today. Low suspicion for any sepsis, meningitis, severe dehydration, peritonsillar/ pharyngeal abscess, airway compromise, or other acute systemic emergent condition at this time. No other labs or imaging warranted at this time based on H&P. Patient is tolerating p.o. without any difficulties. I will send her home with a Rx for bactrim. Conservative measures otherwise for symptoms. Recheck with your PCM in 2-3 days. Return to the ED with any worsening/ concerning symptoms otherwise as reviewed discharge. Patient is in agreement. - Vital Signs Vital signs: Temp Pulse Resp BP Pulse Ox 97.6 F 72 14 102/85 95 06/24/17 16:55 06/24/17 16:55 06/24/17 16:55 06/24/17 16:55 06/24/17 16:55 - Laboratory Result Diagrams: 06/24/17 17:17 06/24/17 17:17 Laboratory results interpreted by me: 06/24/17 06/24/17 17:17 17:17 RBC 3.50 L Hgb 11.8 L Hct 34.2 L MCV 98 H MCH 33.6 H Sodium 134.0 L Chloride 94 L Discharge - Discharge Clinical Impression: Acute URI, Acute UTI (urinary tract infection) Condition: Stable Disposition: HOME, SELF-CARE Instructions: Urinary Tract Infection ([facility]), Trimethoprim-Sulfa ([facility]) Additional Instructions: Push fluids (i.e. water, cranberry juice) Proper hygenic technique Keep the skin clean Tylenol/ibuprofen as needed Goxf-hmx-wusrvsw cold medication as needed wash hands regularly wear mask if coughing May use over the counter AZO for burning with urination Take medications as directed F/u with your PCM in 2-3 days for a recheck Return to the ED with any worsening symptoms and/or development of fever, headache, chest pain, palpitations, syncope, shortness of breath, trouble breathing, abdominal pain, n/v/d, blood in stool/urine, loss of control of bowel /bladder, urinary retention, or other worsening symptoms that are concerning to you. Prescriptions: Sulfamethoxazole/Trimethoprim [Bactrim Ds Tablet] 1 each PO BID #14 tablet Forms: Smoking Cessation Education Referrals: [facility] [Provider Group] - Follow up as needed [facility] [Provider Group] - Follow up as needed
[2017-06-24 18:08] LABS: AMORPHOUS SEDIMENT,URINE TRACE /HPF; APPEARANCE,URINE CLOUDY; BILIRUBIN,URINE NEGATIVE (NEGATIVE); COLOR,URINE YELLOW; GLUCOSE, URINE NEGATIVE (NEGATIVE); KETONES,URINE NEGATIVE (NEGATIVE); LEUKOCYTE ESTERASE,URINE LARGE (NEGATIVE); NITRITE,URINE POSITIVE (NEGATIVE); PROTEIN,URINE NEGATIVE (NEGATIVE); URINE SPECIFIC GRAVITY 1.009; UROBILINOGEN,URINE NEGATIVE mg/dL (<2.0)
[2017-06-24 19:01] VITALS: BP 106/61
== END 2017-06-24 19:01 | disposition home or self-care (01) ==
LOC: ER 16:43
DX: J06.9 Acute upper respiratory infection, unspecified (principal); N39.0 Urinary tract infection, site not specified; M79.1 Myalgia; F17.200 Nicotine dependence, unspecified, uncomplicated; E78.00 Pure hypercholesterolemia, unspecified; I10 Essential (primary) hypertension; Z90.710 Acquired absence of both cervix and uterus
CPT/HCPCS: 94640; 99284; 96372; 36415; 87070; 87880; 85025; 80053; 81001; J1100; J7620

== ENCOUNTER → 2017-12-17 | Outpatient (CLI) | payer MEDICAID ==
--- NOTE | 2017-12-17 16:29 | RADIOLOGY REPORT (SQ) ---
EXAM DESCRIPTION: FOOT LEFT COMPLETE COMPLETED DATE/TIME: 12/17/2017 4:11 pm REASON FOR STUDY: LEFT FOOT PAIN M79.672 PAIN IN LEFT FOOT COMPARISON: None. NUMBER OF VIEWS: Three views. TECHNIQUE: AP, lateral and oblique radiographic images acquired of the left foot. LIMITATIONS: None. FINDINGS: MINERALIZATION: Normal. BONES: No acute fracture or dislocation. No worrisome bone lesions. JOINTS: No effusions. SOFT TISSUES: There appears to be soft tissue swelling. No radiopaque foreign body is identified OTHER: No other significant finding. IMPRESSION: No acute fracture or dislocation. There appears to be some soft tissue swelling. Other findings as noted above TECHNICAL DOCUMENTATION: JOB ID: [id number] [employer]- All Rights Reserved Reading location - IP/workstation name: [email or web address]
== END ==
LOC: OD 15:49
PROVIDERS: ATTEND Family Medicine
DX: M79.672 Pain in left foot (principal)

== ENCOUNTER 2018-09-25 06:51 | Emergency (ER) | payer MEDICAID ==
[2018-09-25] MEDS ORDERED: NORMAL SALINE 1000 ML 1,000 ML IV ONE (07:30)
[2018-09-25] MEDS ORDERED: METOCLOPRAMIDE HCL INJ/PF 10 MG/2 ML SDV IV ONE (07:30)
--- NOTE | 2018-09-25 07:33 | ER Document Report ---
ED Medical Screen (RME) - General Chief Complaint: Abdominal Pain Stated Complaint: ABDOMINAL PAIN Time Seen by Provider: 09/25/18 07:25 Primary Care Provider: YASH BURGER MD [Primary Care Provider] - Follow up as needed Notes: 58-year-old female with chief complaint of abdominal pain and vomiting that started yesterday, seen by primary care and started on Macrobid, is having difficulty taking Macrobid because of the vomiting. Reports diffuse abdominal pain with no specific area of pain. Denies fever. Reports she also has a headache now. She has had a total hysterectomy. She also reports constipation. TRAVEL OUTSIDE OF THE [place] IN LAST 30 DAYS: No - Related Data Allergies/Adverse Reactions: Penicillins Allergy (Intermediate, Verified 09/25/18 06:53) RASH, HIVES, ITCHING Past Medical History - Past Medical History Cardiac Medical History: Reports: Hx Hypercholesterolemia, Hx Hypertension Denies: Hx Coronary Artery Disease, Hx Heart Attack Pulmonary Medical History: Denies: Hx Asthma, Hx Bronchitis, Hx COPD, Hx Pneumonia Neurological Medical History: Reports: Hx Migraine, Hx Seizures. Denies: Hx Cerebrovascular Accident Renal/ Medical History: Denies: Hx Peritoneal Dialysis GI Medical History: Denies: Hx Hepatitis, Hx Hiatal Hernia, Hx Ulcer Musculoskeltal Medical History: Denies Hx Arthritis Psychiatric Medical History: Reports: Hx Anxiety, Hx Depression Infectious Medical History: Denies: Hx Hepatitis Past Surgical History: Reports: Hx Hysterectomy, Other - Clipping of cerebral aneurysm. Denies: Hx Mastectomy, Hx Open Heart Surgery, Hx Pacemaker - Immunizations Hx Diphtheria, Pertussis, Tetanus Vaccination: Yes History of Influenza Vaccine for 11/2016 - 04/2017 Season: No Physical Exam - Vital signs Vitals: Temp Pulse Resp BP Pulse Ox 97.6 F 95 20 126/73 H 97 09/25/18 06:54 09/25/18 06:54 09/25/18 06:54 09/25/18 06:54 09/25/18 06:54 - Abdominal Tenderness: Tender - Mild generalized diffuse tenderness without specific area of tenderness, no guarding Course - Re-evaluation Re-evalutation: Patient is actually quite well-appearing, has mild diffuse abdominal tenderness, she is very talkative. Work-up pending. Giving Reglan for both nausea and headache. I have greeted and performed a rapid initial assessment of this patient. A comprehensive ED assessment and evaluation of the patient, analysis of test results and completion of the medical decision making process will be conducted by additional ED providers. - Vital Signs Vital signs: Temp Pulse Resp BP Pulse Ox 97.6 F 95 20 126/73 H 97 09/25/18 06:54 09/25/18 06:54 09/25/18 06:54 09/25/18 06:54 09/25/18 06:54 Doctor's Discharge - Discharge Referrals: YASH BURGER MD [Primary Care Provider] - Follow up as needed
[2018-09-25] MEDS ORDERED: ONDANSETRON HCL INJ/PF 4 MG/2 ML SDV IV ONE (08:31)
--- NOTE | 2018-09-25 08:36 | ER Document Report ---
ED General - General Chief Complaint: Abdominal Pain Stated Complaint: ABDOMINAL PAIN Time Seen by Provider: 09/25/18 07:25 Primary Care Provider: YASH BURGER MD [Primary Care Provider] - Follow up as needed TRAVEL OUTSIDE OF THE [place] IN LAST 30 DAYS: No - HPI Notes: Patient is a 58-year-old female presents emergency department for evaluation of 2 days of diffuse abdominal pain, nausea, vomiting. She cannot really tell me about the pain other than to say it hurts. It is diffuse in nature. Normal bowel movements. She is had 2 episodes of nonbloody, nonbilious emesis since arrival. She has had dysuria as well as urinary frequency. She was seen by her primary care physician's office yesterday. She was prescribed Macrobid, took 1 dose at 1030 last night. She has had some chills but no fever. No vaginal discharge. - Related Data Allergies/Adverse Reactions: Penicillins Allergy (Intermediate, Verified 09/25/18 06:53) RASH, HIVES, ITCHING Home Medications: Metoprolol, atorvastatin, Seroquel, Tegretol, Aimovig, fenofibrate, lisinopril/HCTZ Past Medical History - General Information source: Patient - Social History Smoking Status: Current Every Day Smoker Chew tobacco use (# tins/day): No Frequency of alcohol use: None Drug Abuse: None Family History: Reviewed & Not Pertinent Patient has suicidal ideation: No Patient has homicidal ideation: No - Past Medical History Cardiac Medical History: Reports: Hx Hypercholesterolemia, Hx Hypertension Denies: Hx Coronary Artery Disease, Hx Heart Attack Pulmonary Medical History: Denies: Hx Asthma, Hx Bronchitis, Hx COPD, Hx Pneumonia Neurological Medical History: Reports: Hx Migraine, Hx Seizures, Other - Cerebral aneurysm. Denies: Hx Cerebrovascular Accident Renal/ Medical History: Denies: Hx Peritoneal Dialysis GI Medical History: Denies: Hx Hepatitis, Hx Hiatal Hernia, Hx Ulcer Musculoskeletal Medical History: Denies Hx Arthritis Psychiatric Medical History: Reports: Hx Anxiety, Hx Depression Infectious Medical History: Denies: Hx Hepatitis Past Surgical History: Reports: Hx Hysterectomy, Other - Clipping of cerebral aneurysm. Denies: Hx Mastectomy, Hx Open Heart Surgery, Hx Pacemaker - Immunizations Hx Diphtheria, Pertussis, Tetanus Vaccination: Yes Review of Systems - Review of Systems Constitutional: No symptoms reported EENT: No symptoms reported Cardiovascular: No symptoms reported Respiratory: No symptoms reported Gastrointestinal: See HPI Genitourinary: See HPI Female Genitourinary: No symptoms reported Musculoskeletal: No symptoms reported Skin: No symptoms reported Neurological/Psychological: No symptoms reported Physical Exam - Vital signs Vitals: Temp Pulse Resp BP Pulse Ox 97.6 F 95 20 126/73 H 97 09/25/18 06:54 09/25/18 06:54 09/25/18 06:54 09/25/18 06:54 09/25/18 06:54 - Notes Notes: This is a 58-year-old female who appears her stated age amount of moderate distress. Upon walking into the room, she is actively vomiting. Vital signs reviewed, please refer to chart. Head is normocephalic, atraumatic. Pupils equal round, reactive to light. Neck is supple without meningismus. Heart is regular rate and rhythm. Lungs are clear to auscultation bilaterally. Abdomen is soft, nontender, normoactive bowel sounds throughout. Extremities without cyanosis, clubbing. Posterior calves are nontender. Peripheral pulses are equal. Skin is warm and dry. Patient is awake, alert, neurological exam is nonfocal. Course - Re-evaluation Re-evalutation: 09/25/18 08:35 Patient presents emergency department for evaluation of diffuse abdominal pain, nausea, vomiting. She is only 1 dose of her antibiotic for urinary tract infection. Urinalysis is pending at this time. She is given fluids, Reglan, Zofran. We will continue to monitor. 09/25/18 10:51 Laboratory investigations reveal that she does continue to have a significant UTI. After medication with Reglan and Zofran she had no further vomiting. She is feeling markedly improved. She does not have a significant leukocytosis. I will send her home with Zofran and a prescription for Keflex. Unfortunately she does not have any old urine cultures here. She is to follow-up with your doctor this week. Return to the emergency department with worsening or new concerning symptoms of any sort. 09/25/18 10:51 09/25/18 10:53 - Vital Signs Vital signs: Temp Pulse Resp BP Pulse Ox 98.5 F 89 17 109/69 95 09/25/18 11:22 09/25/18 08:06 09/25/18 11:01 09/25/18 11:00 09/25/18 11:01 - Laboratory Result Diagrams: 09/25/18 08:25 09/25/18 08:25 Laboratory results interpreted by me: 09/25/18 09/25/18 09/25/18 08:25 08:25 09:09 RBC 3.45 L Hgb 11.4 L Hct 33.8 L MCV 98 H Seg Neutrophils % 78.4 H Sodium 134.7 L Urine Ketones TRACE H Urine Blood SMALL H Ur Leukocyte Esterase MODERATE H Discharge - Discharge Clinical Impression: Nausea and vomiting Qualifiers: Vomiting type: unspecified Vomiting Intractability: non-intractable Qualified Code(s): R11.2 - Nausea with vomiting, unspecified Urinary tract infection Qualifiers: Urinary tract infection type: site unspecified Hematuria presence: without hematuria Qualified Code(s): N39.0 - Urinary tract infection, site not specified Condition: Stable Disposition: HOME, SELF-CARE Instructions: Antinausea Medication ([facility]), Urinary Tract Infection ([facility]) Additional Instructions: Zofran as needed for nausea. Small, frequent sips of fluids to stay hydrated. Take all the antibiotic as prescribed, first dose upon arriving home today. Follow-up with your doctor this week. Return to the emergency department with worsening or new concerning symptoms of any sort. Prescriptions: RX: Cephalexin Monohydrate [Keflex 500 mg Capsule] 500 mg PO QID #20 capsule Ondansetron [Zofran Odt 4 mg Tablet] 1 tab PO Q4H PRN #15 tab.rapdis PRN Reason: For Nausea/Vomiting Referrals: YASH BURGER MD [Primary Care Provider] - Follow up as needed
[2018-09-25 08:53] LABS: ABSOLUTE EOSINOPHILS # (AUTO) 0.1 10^3/uL (0.0-0.6); ABSOLUTE LYMPHOCYTES (AUTO) 1.5 10^3/uL (0.5-4.7); ABSOLUTE MONOCYTES (AUTO) 0.6 10^3/uL (0.1-1.4); BASOPHILS % (AUTO) 0.4 % (0-2); EOSINOPHILS % (AUTO) 0.5 % (0-6); HEMATOCRIT 33.8 % (36.0-47.0); HEMOGLOBIN 11.4 g/dL (12.0-15.5); LYMPHOCYTES % (AUTO) 14.4 % (13-45); MEAN CORPUSCULAR HEMOGLOBIN 33.2 pg (27.0-33.4); MEAN CORPUSCULAR HGB CONC 33.8 g/dL (32.0-36.0); MEAN CORPUSCULAR VOLUME 98 fl (80-97); MONOCYTES % (AUTO) 6.3 % (3-13); PLATELET COUNT 382 10^3/uL (150-450); RED BLOOD COUNT 3.45 10^6/uL (3.72-5.28); RED CELL DISTRIBUTION WIDTH 12.2 % (11.5-14.0); SEGMENTED NEUTROPHILS % (AUTO) 78.4 % (42-78); TOTAL CELLS COUNTED % (AUTO) 100 %; WHITE BLOOD COUNT 10.1 10^3/uL (4.0-10.5)
[2018-09-25 09:05] LABS: ALBUMIN 4.7 g/dL (3.5-5.0); ALKALINE PHOSPHATASE 63 U/L (38-126); ANION GAP 13 (5-19); ASPARTATE AMINO TRANSFERASE 32 U/L (14-36); BILIRUBIN,DIRECT 0.4 mg/dL (0.0-0.4); BILIRUBIN,TOTAL 0.5 mg/dL (0.2-1.3); BLOOD UREA NITROGEN 13 mg/dL (7-20); CALCIUM 9.4 mg/dL (8.4-10.2); CARBON DIOXIDE 22 mmol/L (22-30); CHLORIDE 100 mmol/L (98-107); GLUCOSE 104 mg/dL (75-110); POTASSIUM 3.7 mmol/L (3.6-5.0); TOTAL PROTEIN 7.8 g/dL (6.3-8.2)
[2018-09-25 09:32] LABS: APPEARANCE,URINE SLIGHTLY-CLOUDY; BILIRUBIN,URINE NEGATIVE (NEGATIVE); COLOR,URINE YELLOW; GLUCOSE, URINE NEGATIVE (NEGATIVE); KETONES,URINE TRACE mg/dL (NEGATIVE); LEUKOCYTE ESTERASE,URINE MODERATE (NEGATIVE); NITRITE,URINE NEGATIVE (NEGATIVE); PROTEIN,URINE NEGATIVE (NEGATIVE); URINE SPECIFIC GRAVITY 1.013; UROBILINOGEN,URINE NEGATIVE mg/dL (<2.0)
[2018-09-25 11:11] VITALS: BP 109/69
== END 2018-09-25 11:23 | disposition home or self-care (01) ==
LOC: ER 06:51
DX: N39.0 Urinary tract infection, site not specified (principal); R10.9 Unspecified abdominal pain; R11.2 Nausea with vomiting, unspecified; F17.200 Nicotine dependence, unspecified, uncomplicated; E78.00 Pure hypercholesterolemia, unspecified; I10 Essential (primary) hypertension; Z88.0 Allergy status to penicillin; Z90.710 Acquired absence of both cervix and uterus
CPT/HCPCS: 36415; 83690; 85025; 80053; 81001; J2765; J2405; J7030; 96361; 96374; 96375; 99284

== ENCOUNTER 2018-10-22 17:24 | Emergency (ER) | payer MEDICAID ==
--- NOTE | 2018-10-22 18:00 | ER Document Report ---
ED Medical Screen (RME) - General Chief Complaint: Abdominal Pain Stated Complaint: DIZZINESS Time Seen by Provider: 10/22/18 17:46 Primary Care Provider: YASH BURGER MD [Primary Care Provider] - Follow up as needed Mode of Arrival: Ambulatory Information source: Patient Notes: 58-year-old female presented to ED for complaint of stomachache burning with urination burning with stool nausea and dizziness. She states she has decreased appetite. She states she is hurting so bad she needs to find it was going with on with her. She states couple weeks ago the doctor found some blood in her urine and started on Flagyl. She states she has been nauseated and sick since before that continues to be. She is alert oriented respirations regular and unlabored speaking in full sentences walks with even steady gait. I have greeted and performed a rapid initial assessment of this patient. A comprehensive ED assessment and evaluation of the patient, analysis of test results and completion of medical decision making process will be conducted by an additional ED providers. TRAVEL OUTSIDE OF THE [place] IN LAST 30 DAYS: No - Related Data Allergies/Adverse Reactions: Penicillins Allergy (Intermediate, Verified 10/22/18 17:25) RASH, HIVES, ITCHING Past Medical History - Past Medical History Cardiac Medical History: Reports: Hx Hypercholesterolemia, Hx Hypertension Denies: Hx Coronary Artery Disease, Hx Heart Attack Pulmonary Medical History: Denies: Hx Asthma, Hx Bronchitis, Hx COPD, Hx Pneumonia Neurological Medical History: Reports: Hx Migraine, Hx Seizures. Denies: Hx Cerebrovascular Accident Renal/ Medical History: Denies: Hx Peritoneal Dialysis GI Medical History: Denies: Hx Hepatitis, Hx Hiatal Hernia, Hx Ulcer Musculoskeltal Medical History: Denies Hx Arthritis Psychiatric Medical History: Reports: Hx Anxiety, Hx Depression Infectious Medical History: Denies: Hx Hepatitis Past Surgical History: Reports: Hx Hysterectomy, Other - Clipping of cerebral aneurysm. Denies: Hx Mastectomy, Hx Open Heart Surgery, Hx Pacemaker - Immunizations Hx Diphtheria, Pertussis, Tetanus Vaccination: Yes History of Influenza Vaccine for 11/2016 - 04/2017 Season: No Physical Exam - Vital signs Vitals: Temp Pulse Resp BP Pulse Ox 98.1 F 82 18 120/67 96 10/22/18 17:28 10/22/18 17:28 10/22/18 17:28 10/22/18 17:28 10/22/18 17:28 Course - Vital Signs Vital signs: Temp Pulse Resp BP Pulse Ox 98.1 F 82 18 120/67 96 10/22/18 17:28 10/22/18 17:28 10/22/18 17:28 10/22/18 17:28 10/22/18 17:28 Doctor's Discharge - Discharge Referrals: YASH BURGER MD [Primary Care Provider] - Follow up as needed
[2018-10-22 18:17] LABS: ABSOLUTE BASOPHILS # (AUTO) 0.1 10^3/uL (0.0-0.2); ABSOLUTE EOSINOPHILS # (AUTO) 0.1 10^3/uL (0.0-0.6); ABSOLUTE MONOCYTES (AUTO) 0.6 10^3/uL (0.1-1.4); BASOPHILS % (AUTO) 1.2 % (0-2); EOSINOPHILS % (AUTO) 1.8 % (0-6); HEMATOCRIT 33.1 % (36.0-47.0); HEMOGLOBIN 11.5 g/dL (12.0-15.5); LYMPHOCYTES % (AUTO) 28.9 % (13-45); MEAN CORPUSCULAR HGB CONC 34.9 g/dL (32.0-36.0); MEAN CORPUSCULAR VOLUME 98 fl (80-97); MONOCYTES % (AUTO) 8.8 % (3-13); PLATELET COUNT 445 10^3/uL (150-450); RED BLOOD COUNT 3.39 10^6/uL (3.72-5.28); RED CELL DISTRIBUTION WIDTH 12.8 % (11.5-14.0); SEGMENTED NEUTROPHILS % (AUTO) 59.3 % (42-78); TOTAL CELLS COUNTED % (AUTO) 100 %; WHITE BLOOD COUNT 6.8 10^3/uL (4.0-10.5)
[2018-10-22 19:00] LABS: APPEARANCE,URINE CLEAR; BILIRUBIN,URINE NEGATIVE (NEGATIVE); COLOR,URINE YELLOW; GLUCOSE, URINE NEGATIVE (NEGATIVE); KETONES,URINE NEGATIVE (NEGATIVE); LEUKOCYTE ESTERASE,URINE TRACE (NEGATIVE); NITRITE,URINE NEGATIVE (NEGATIVE); PROTEIN,URINE NEGATIVE (NEGATIVE); UROBILINOGEN,URINE NEGATIVE mg/dL (<2.0)
--- NOTE | 2018-10-22 21:08 | ER Document Report ---
ED General - General Chief Complaint: Abdominal Pain Stated Complaint: DIZZINESS Time Seen by Provider: 10/22/18 17:46 Primary Care Provider: YASH BURGER MD [Primary Care Provider] - Follow up as needed Mode of Arrival: Ambulatory Notes: 58-year-old female presents the emergency department with chief complaint of dysuria, constipation, and a burning stomachache that has been going on for several days. Patient also states that she had some mild dizziness earlier today that is since resolved. Patient states "I am hurting so bad I need to find out what is going on". Patient has reduced appetite and intermittent nausea. Patient denies fevers, chills, recent illness, patient denies acute shortness of breath or chest pain, denies vomiting or diarrhea. No urinary frequency or urgency, no abnormal vaginal discharge or vaginal bleeding. Patient states that a couple weeks ago she had some hematuria and was reportedly started on Flagyl. When I looked at her prescription bottle it was dated 2016 so unclear if that was the correct medication she was prescribed TRAVEL OUTSIDE OF THE [place] IN LAST 30 DAYS: No - Related Data Allergies/Adverse Reactions: Penicillins Allergy (Intermediate, Verified 10/22/18 17:25) RASH, HIVES, ITCHING Past Medical History - General Information source: Patient - Social History Smoking Status: Unknown if Ever Smoked Family History: Reviewed & Not Pertinent Patient has suicidal ideation: No Patient has homicidal ideation: No - Past Medical History Cardiac Medical History: Reports: Hx Hypercholesterolemia, Hx Hypertension Denies: Hx Coronary Artery Disease, Hx Heart Attack Pulmonary Medical History: Denies: Hx Asthma, Hx Bronchitis, Hx COPD, Hx Pneumonia Neurological Medical History: Reports: Hx Migraine, Hx Seizures. Denies: Hx Cerebrovascular Accident Renal/ Medical History: Denies: Hx Peritoneal Dialysis GI Medical History: Denies: Hx Hepatitis, Hx Hiatal Hernia, Hx Ulcer Musculoskeletal Medical History: Denies Hx Arthritis Psychiatric Medical History: Reports: Hx Anxiety, Hx Depression Infectious Medical History: Denies: Hx Hepatitis Past Surgical History: Reports: Hx Hysterectomy, Other - Clipping of cerebral aneurysm. Denies: Hx Mastectomy, Hx Open Heart Surgery, Hx Pacemaker - Immunizations Hx Diphtheria, Pertussis, Tetanus Vaccination: Yes Review of Systems - Review of Systems Constitutional: See HPI EENT: No symptoms reported Cardiovascular: See HPI Respiratory: See HPI Gastrointestinal: See HPI Genitourinary: See HPI Female Genitourinary: See HPI Musculoskeletal: No symptoms reported Skin: No symptoms reported Hematologic/Lymphatic: No symptoms reported Neurological/Psychological: No symptoms reported Physical Exam - Vital signs Vitals: Temp Pulse Resp BP Pulse Ox 98.1 F 82 18 120/67 96 10/22/18 17:28 10/22/18 17:28 10/22/18 17:28 10/22/18 17:28 10/22/18 17:28 - Notes Notes: PHYSICAL EXAMINATION: Reviewed vital signs and charting by RN GENERAL: Alert, interacts well. No acute distress. HEAD: Normocephalic, atraumatic. EYES: Pupils equal and round. Extraocular movements intact. ENT: Oral mucosa moist, tongue midline. NECK: Full range of motion. Trachea midline. LUNGS: Clear to auscultation bilaterally, no wheezes, rales, or rhonchi. No respiratory distress. HEART: Regular rate and rhythm. No murmur ABDOMEN: soft, non-tender. No distention. Bowel sounds present EXTREMITIES: Moves all 4 extremities spontaneously. No edema, No cyanosis. PSYCH: Normal affect, normal mood. SKIN: Warm, dry, normal turgor. No rashes or lesions noted. Course - Re-evaluation Re-evalutation: 10/22/18 21:05 Overall well-appearing and patient is most concerned about if she has a UTI or not. Patient is a very difficult historian but I do not suspect any concerning pathology that would require imaging at this time. Basic lab work has been obtained and all within normal limits. No evidence of UTI on urinalysis. Patient is very well-appearing and nontoxic. At this time I have very low suspicion for any concerning abdominal pathology or surgical abdomen and she has a follow-up appointment at 1400 tomorrow, so I am very comfortable discharging her home with a normal work-up at this time. Stable for discharge. 10/22/18 21:06 - Vital Signs Vital signs: Temp Pulse Resp BP Pulse Ox 98.1 F 82 18 120/67 96 10/22/18 17:28 10/22/18 17:28 10/22/18 17:28 10/22/18 17:28 10/22/18 17:28 - Laboratory Result Diagrams: 10/22/18 18:05 10/22/18 18:05 Laboratory results interpreted by me: 10/22/18 10/22/18 18:05 18:30 RBC 3.39 L Hgb 11.5 L Hct 33.1 L MCV 98 H MCH 34.0 H Ur Leukocyte Esterase TRACE H Discharge - Discharge Clinical Impression: Dysuria Constipation Qualifiers: Constipation type: unspecified constipation type Qualified Code(s): K59.00 - Constipation, unspecified Condition: Good Disposition: HOME, SELF-CARE Additional Instructions: You were seen in the emergency department this evening for pain with urination and constipation. Your lab work was all within normal limits and your urine did not show any evidence of a UTI. Please follow-up at your appointment tomorrow at 2 PM that you have scheduled. Please return to the emergency department if you have intractable severe abdominal pain, intractable nausea or vomiting, you pass out, or you have any other concerning symptoms. Referrals: YASH BURGER MD [Primary Care Provider] - Follow up as needed
[2018-10-22 21:12] LABS: ALBUMIN 4.7 g/dL (3.5-5.0); ALKALINE PHOSPHATASE 62 U/L (38-126); ANION GAP 12 (5-19); ASPARTATE AMINO TRANSFERASE 34 U/L (14-36); BILIRUBIN,DIRECT 0.4 mg/dL (0.0-0.4); BILIRUBIN,TOTAL 0.4 mg/dL (0.2-1.3); BLOOD UREA NITROGEN 18 mg/dL (7-20); CARBON DIOXIDE 24 mmol/L (22-30); CHLORIDE 99 mmol/L (98-107); GLUCOSE 80 mg/dL (75-110); POTASSIUM 4.3 mmol/L (3.6-5.0); TOTAL PROTEIN 7.8 g/dL (6.3-8.2)
[2018-10-22 22:03] VITALS: BP 141/69
== END 2018-10-22 22:03 | disposition home or self-care (01) ==
LOC: ER 17:24
DX: R30.0 Dysuria (principal); K59.00 Constipation, unspecified; R10.9 Unspecified abdominal pain; R42 Dizziness and giddiness; E78.00 Pure hypercholesterolemia, unspecified; I10 Essential (primary) hypertension; Z90.710 Acquired absence of both cervix and uterus; Z88.0 Allergy status to penicillin
CPT/HCPCS: 36415; 80053; 81001; 83690; 85025

== ENCOUNTER → 2019-02-28 | Outpatient (CLI) | payer MEDICAID ==
[2019-02-28 13:51] LABS: ANION GAP 11 (5-19); BLOOD UREA NITROGEN 14 mg/dL (7-20); CALCIUM 9.6 mg/dL (8.4-10.2); CARBON DIOXIDE 25 mmol/L (22-30); CHLORIDE 102 mmol/L (98-107); GLUCOSE 88 mg/dL (75-110); POTASSIUM 4.6 mmol/L (3.6-5.0)
== END ==
LOC: OD 12:25
PROVIDERS: ATTEND Family Medicine
DX: E87.5 Hyperkalemia (principal)
CPT/HCPCS: 36415; 80048

== ENCOUNTER 2019-07-24 02:32 | Emergency (ER) | payer MEDICAID ==
[2019-07-24 04:03] LABS: APPEARANCE,URINE CLEAR; BILIRUBIN,URINE NEGATIVE (NEGATIVE); COLOR,URINE STRAW; GLUCOSE, URINE NEGATIVE (NEGATIVE); KETONES,URINE NEGATIVE (NEGATIVE); PROTEIN,URINE NEGATIVE (NEGATIVE); URINE SPECIFIC GRAVITY 1.005; UROBILINOGEN,URINE NEGATIVE mg/dL (<2.0)
[2019-07-24 05:14] LABS: ABSOLUTE EOSINOPHILS # (AUTO) 0.1 10^3/uL (0.0-0.6); ABSOLUTE LYMPHOCYTES (AUTO) 2.6 10^3/uL (0.5-4.7); ABSOLUTE MONOCYTES (AUTO) 0.6 10^3/uL (0.1-1.4); ABSOLUTE NEUT (AUTO) 5.6 10^3/uL (1.7-8.2); BASOPHILS % (AUTO) 0.4 % (0-2); EOSINOPHILS % (AUTO) 1.5 % (0-6); HEMATOCRIT 33.9 % (36.0-47.0); HEMOGLOBIN 12.2 g/dL (12.0-15.5); LYMPHOCYTES % (AUTO) 29.3 % (13-45); MEAN CORPUSCULAR HEMOGLOBIN 34.3 pg (27.0-33.4); MEAN CORPUSCULAR HGB CONC 36.1 g/dL (32.0-36.0); MEAN CORPUSCULAR VOLUME 95 fl (80-97); MONOCYTES % (AUTO) 6.9 % (3-13); PLATELET COUNT 389 10^3/uL (150-450); RED BLOOD COUNT 3.57 10^6/uL (3.72-5.28); RED CELL DISTRIBUTION WIDTH 12.2 % (11.5-14.0); SEGMENTED NEUTROPHILS % (AUTO) 61.9 % (42-78); TOTAL CELLS COUNTED % (AUTO) 100 %
--- NOTE | 2019-07-24 05:22 | ER Document Report ---
ED Medical Screen (RME) - General Chief Complaint: Urinary Problem Stated Complaint: URINARY PROBLEMS Time Seen by Provider: 07/24/19 05:15 Primary Care Provider: YASH BURGER MD [Primary Care Provider] - Follow up as needed Notes: 59-year-old female chief complaint of painful urination, constipation with small hard bowel movements, swelling, bloating, and pain of the abdomen. Patient was placed on Cipro and MiraLAX with continued dysuria and continued bloating and minimal bowel movements. She denies vomiting but reports nausea. Denies fever. She has had a hysterectomy but no other bowel surgeries. TRAVEL OUTSIDE OF THE [place] IN LAST 30 DAYS: No - Related Data Allergies/Adverse Reactions: Penicillins Allergy (Intermediate, Verified 10/22/18 17:25) RASH, HIVES, ITCHING Home Medications: cipro, lisinopril, atorvastatin, metoprolol, carbamazepine, serterzine, omeprazole, fenofibrate, seroquel Past Medical History - Past Medical History Cardiac Medical History: Reports: Hx Hypercholesterolemia, Hx Hypertension Denies: Hx Coronary Artery Disease, Hx Heart Attack Pulmonary Medical History: Denies: Hx Asthma, Hx Bronchitis, Hx COPD, Hx Pneumonia Neurological Medical History: Reports: Hx Migraine, Hx Seizures. Denies: Hx Cerebrovascular Accident Renal/ Medical History: Denies: Hx Peritoneal Dialysis GI Medical History: Denies: Hx Hepatitis, Hx Hiatal Hernia, Hx Ulcer Musculoskeltal Medical History: Denies Hx Arthritis Psychiatric Medical History: Reports: Hx Anxiety, Hx Depression Infectious Medical History: Denies: Hx Hepatitis Past Surgical History: Reports: Hx Hysterectomy, Other - Clipping of cerebral aneurysm. Denies: Hx Mastectomy, Hx Open Heart Surgery, Hx Pacemaker - Immunizations Hx Diphtheria, Pertussis, Tetanus Vaccination: Yes Physical Exam - Vital signs Vitals: Temp Pulse Resp BP Pulse Ox 97.9 F 71 16 147/71 H 100 07/24/19 02:36 07/24/19 02:36 07/24/19 02:36 07/24/19 02:36 07/24/19 02:36 - Abdominal Tenderness: No: Tender - No noted tenderness but mild distention is noted. Bowel sounds are present Course - Re-evaluation Re-evalutation: I have greeted and performed a rapid initial assessment of this patient. A comprehensive ED assessment and evaluation of the patient, analysis of test results and completion of the medical decision making process will be conducted by additional ED providers. - Vital Signs Vital signs: Temp Pulse Resp BP Pulse Ox 98 F 71 16 147/71 H 100 07/24/19 04:33 07/24/19 02:36 07/24/19 02:36 07/24/19 02:36 07/24/19 02:36 - Laboratory Result Diagrams: 07/24/19 05:04 07/24/19 05:04 Laboratory results interpreted by me: 07/24/19 07/24/19 03:21 05:04 RBC 3.57 L Hct 33.9 L MCH 34.3 H MCHC 36.1 H Urine Blood SMALL H Leukocyte Esterase Rfl TRACE H Doctor's Discharge - Discharge Referrals: YASH BURGER MD [Primary Care Provider] - Follow up as needed
[2019-07-24 05:26] LABS: ALBUMIN 4.8 g/dL (3.5-5.0); ALKALINE PHOSPHATASE 72 U/L (38-126); ANION GAP 11 (5-19); ASPARTATE AMINO TRANSFERASE 26 U/L (14-36); BILIRUBIN,TOTAL 0.5 mg/dL (0.2-1.3); BLOOD UREA NITROGEN 13 mg/dL (7-20); CALCIUM 9.9 mg/dL (8.4-10.2); CARBON DIOXIDE 25 mmol/L (22-30); CHLORIDE 91 mmol/L (98-107); GLUCOSE 102 mg/dL (75-110); POTASSIUM 3.7 mmol/L (3.6-5.0)
--- NOTE | 2019-07-24 06:45 | RADIOLOGY REPORT (SQ) ---
EXAM: XR Abdomen, 2 Views and XR Chest, 1 View EXAM DATE/TIME: 07/24/2019 05:21 CLINICAL HISTORY: The patient is 59 years old and is Female; abd pain and swelling TECHNIQUE: Frontal view of the chest, frontal view of the abdomen/pelvis and upright or decubitus view of the abdomen. COMPARISON: Abdominal radiographs from 12/29/2016; chest radiograph from 06/22/2017 FINDINGS: LUNGS: Unremarkable. No consolidation. PLEURAL SPACE: Unremarkable. No pneumothorax. HEART: Unremarkable. No cardiomegaly. MEDIASTINUM: Unremarkable. INTRAPERITONEAL SPACE: No obvious free air. GASTROINTESTINAL TRACT: Minimal stool visualized in the colon. No bowel dilatation to suggest obstruction. BONES/JOINTS: No acute osseous findings. IMPRESSION: No acute findings visualized.
--- NOTE | 2019-07-24 07:14 | ER Document Report ---
Entered by JEANNETTE EID SCRIBE 07/24/19 0651 Acting as scribe for:MECHELLE UMANA MD ED General - General Chief Complaint: Abdominal Pain Stated Complaint: URINARY PROBLEMS Time Seen by Provider: 07/24/19 05:15 Primary Care Provider: YASH BURGER MD [Primary Care Provider] - Follow up as needed Information source: Patient Notes: This 59-year-old female presents to the emergency department complaining of dysuria for the past 10 days. Patient states that she has had associated nausea and chronic constipation. Patient said that she was visiting her mother over weekend when the symptoms began and saw her physician as soon as she came back home. Patient explains that she saw a physician 2 days ago and filled a prescription for her UTI symptoms. Patient reports that she feels "bloated and ". Patient states that today when she had a small bowel movement she had blood on the tissue after wiping. Patient denies fever and cough. TRAVEL OUTSIDE OF THE [place] IN LAST 30 DAYS: No - Related Data Allergies/Adverse Reactions: Penicillins Allergy (Intermediate, Verified 10/22/18 17:25) RASH, HIVES, ITCHING Home Medications: cipro, lisinopril, atorvastatin, metoprolol, carbamazepine, serterzine, omeprazole, fenofibrate, seroquel Past Medical History - General Information source: Patient - Social History Smoking Status: Current Every Day Smoker Cigarette use (# per day): Yes - 1 pack per day Chew tobacco use (# tins/day): No Frequency of alcohol use: None Drug Abuse: None Occupation: nonemployeed Family History: Reviewed & Not Pertinent Patient has homicidal ideation: No - Past Medical History Cardiac Medical History: Reports: Hx Hypercholesterolemia, Hx Hypertension Neurological Medical History: Reports: Hx Migraine, Hx Seizures Psychiatric Medical History: Reports: Hx Anxiety, Hx Depression Past Surgical History: Reports: Hx Hysterectomy, Other - Clipping of cerebral aneurysm - Immunizations Hx Diphtheria, Pertussis, Tetanus Vaccination: Yes Review of Systems - Review of Systems Constitutional: See HPI. denies: Fever EENT: No symptoms reported Cardiovascular: No symptoms reported Respiratory: See HPI. denies: Cough Gastrointestinal: See HPI, Nausea, Constipation, Rectal bleeding, Last bowel movement Genitourinary: See HPI, Dysuria Female Genitourinary: No symptoms reported Musculoskeletal: No symptoms reported Skin: No symptoms reported Hematologic/Lymphatic: No symptoms reported Neurological/Psychological: No symptoms reported -: Yes All other systems reviewed and negative Physical Exam - Vital signs Vitals: Temp Pulse Resp BP Pulse Ox 97.9 F 71 16 147/71 H 100 07/24/19 02:36 07/24/19 02:36 07/24/19 02:36 07/24/19 02:36 07/24/19 02:36 - Notes Notes: Physical Exam: General: Alert, appears well. HEENT: Normocephalic. Atraumatic. PERRL. Extraocular movements intact. Oropharynx clear. Neck: Supple. Non-tender. Respiratory: No respiratory distress. Clear and equal breath sounds bilaterally. Cardiovascular: Regular rate and rhythm. Abdominal: Normal Inspection. Non-tender. No distension. Normal Bowel Sounds. Back: No gross abnormalities. Extremities: Moves all four extremities. Upper extremities: Normal inspection. Normal ROM. Lower extremities: Normal inspection. No edema. Normal ROM. Neurological: Normal cognition. AAOx4. Normal speech. Psychological: Normal affect. Normal Mood. Skin: Warm. Dry. Normal color. Course - Re-evaluation Re-evalutation: 07/24/19 08:47 The patient's lab work shows a urine that is dilute with specific gravity 1.005, nitrite negative, small blood on dipstick, leukocyte Estrace trace, RBCs are 0, WBCs are 4. Chem-12 shows a low sodium at 126.6 otherwise unremarkable. CRP is 12.4 which is slightly elevated. This elevation may be due to the urinary tract infection and it could possibly be related to the abdominal discomfort as she reports prior history of colitis. White blood cell count is 9000 without shift and hemoglobin is 12.2, although she said in the past that she was told she was anemic. Acute abdominal series showed very little stool in the colon and no bowel distention. There is really very little bowel gas noted throughout the abdomen. Her sensation of bloating may be due to another episode of the colitis she has had in the past. She is taking Cipro for her urinary tract infection, and I told her that would be a good choice to continue if she is developing a colitis. - Vital Signs Vital signs: Temp Pulse Resp BP Pulse Ox 98 F 71 16 147/71 H 100 07/24/19 04:33 07/24/19 02:36 07/24/19 02:36 07/24/19 02:36 07/24/19 02:36 - Laboratory Result Diagrams: 07/24/19 05:04 07/24/19 05:04 Laboratory results interpreted by me: 07/24/19 07/24/19 07/24/19 03:21 05:04 05:04 RBC 3.57 L Hct 33.9 L MCH 34.3 H MCHC 36.1 H Sodium 126.6 L Chloride 91 L C-Reactive Protein Urine Blood SMALL H Leukocyte Esterase Rfl TRACE H 07/24/19 05:04 RBC Hct MCH MCHC Sodium Chloride C-Reactive Protein 12.4 H Urine Blood Leukocyte Esterase Rfl - Diagnostic Test Radiology reviewed: Image reviewed, Reports reviewed - Acute abdominal series shows very little stool in the colon, no bowel distention. No free air. No chest abnormalities. Discharge - Discharge Clinical Impression: Abdominal bloating, Hyponatremia Urinary tract infection Qualifiers: Urinary tract infection type: acute cystitis Hematuria presence: with hematuria Qualified Code(s): N30.01 - Acute cystitis with hematuria Condition: Stable Disposition: HOME, SELF-CARE Additional Instructions: Urinary Tract Infection: Your evaluation indicates that you have a urinary tract infection. This is due to germs growing in the bladder. This is a common problem. This infection usually responds quickly to antibiotics. Your antibiotic should be taken exactly as prescribed. Drink plenty of fluids -- three to four quarts a day. Occasionally, a bladder anesthetic will be prescribed to help stop the feeling of urgency until the antibiotic has a chance to clear the infection. This may cause your urine to be dark orange. Certain urine infections require a culture. If the doctor obtained a culture, the results will be back in two days. You should call to see if a change in treatment is needed. A repeat urinalysis after you finish treatment is often recommended. The physician will let you know if further testing is required. Call the doctor if you develop fever, chills, flank pain, inability to urinate, or blood in the urine. Continue the Cipro that you are taking. Drink plenty of fluids throughout the day and the evening. Increase sodium in your diet while you are drinking excessive fluids for the urinary tract infection. Follow-up with your primary care provider in the next few days if you do not begin to improve. RETURN TO THE EMERGENCY ROOM IF ANY NEW OR WORSENING SYMPTOMS. Referrals: YASH BURGER MD [Primary Care Provider] - Follow up as needed I personally performed the services described in the documentation, reviewed and edited the documentation which was dictated to the scribe in my presence, and it accurately records my words and actions.
[2019-07-24 09:05] VITALS: BP 126/65
== END 2019-07-24 09:06 | disposition home or self-care (01) ==
LOC: ER 02:32
DX: N30.01 Acute cystitis with hematuria (principal); E87.1 Hypo-osmolality and hyponatremia; K59.09 Other constipation; R14.0 Abdominal distension (gaseous); K62.5 Hemorrhage of anus and rectum; R11.0 Nausea; E78.00 Pure hypercholesterolemia, unspecified; I10 Essential (primary) hypertension; F17.210 Nicotine dependence, cigarettes, uncomplicated; Z79.899 Other long term (current) drug therapy; Z87.19 Personal history of other diseases of the digestive system
CPT/HCPCS: 36415; 74022; 80053; 81001; 83690; 85025; 86140; 87086; 99284

== ENCOUNTER 2019-11-20 17:55 | Emergency (ER) | payer MEDICAID ==
--- NOTE | 2019-11-20 18:20 | ER Document Report ---
ED Medical Screen (RME) - General Chief Complaint: Dizziness Stated Complaint: DIZZINESS Time Seen by Provider: 11/20/19 18:06 Primary Care Provider: YASH BURGER MD [Primary Care Provider] - Follow up as needed Mode of Arrival: Ambulatory Information source: Patient Notes: 59-year-old female presented to ED for complaint of burning with urination burning in the rectum. She states she has not been sexually active in many years. She states she will went to the primary care and they told her she had a bladder infection and then they told her she did not have a bladder infection. She states she has been having backaches dizziness severe headaches. She complains of trouble focusing. She states she does have a history of an aneurysm and seizures but she has not had a aneurysm since she was 18 or 19 and has not had seizures in a lot of years. She states she has no appetite she is nauseated she is not feeling very well. 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 She states she does smoke a pack a day. Patient is alert oriented respirations regular nonlabored speaking in full sentences. I have greeted and performed a rapid initial assessment of this patient. A comprehensive ED assessment and evaluation of the patient, analysis of test results and completion of medical decision making process will be conducted by an additional ED providers. TRAVEL OUTSIDE OF THE [place] IN LAST 30 DAYS: No - Related Data Allergies/Adverse Reactions: Penicillins Allergy (Intermediate, Verified 10/22/18 17:25) RASH, HIVES, ITCHING Past Medical History - Past Medical History Cardiac Medical History: Reports: Hx Hypercholesterolemia, Hx Hypertension Denies: Hx Coronary Artery Disease, Hx Heart Attack Pulmonary Medical History: Denies: Hx Asthma, Hx Bronchitis, Hx COPD, Hx Pneumonia Neurological Medical History: Reports: Hx Migraine, Hx Seizures. Denies: Hx Cerebrovascular Accident Renal/ Medical History: Denies: Hx Peritoneal Dialysis GI Medical History: Denies: Hx Hepatitis, Hx Hiatal Hernia, Hx Ulcer Musculoskeltal Medical History: Denies Hx Arthritis Psychiatric Medical History: Reports: Hx Anxiety, Hx Depression Infectious Medical History: Denies: Hx Hepatitis Past Surgical History: Reports: Hx Hysterectomy, Other - Clipping of cerebral aneurysm. Denies: Hx Mastectomy, Hx Open Heart Surgery, Hx Pacemaker - Immunizations Hx Diphtheria, Pertussis, Tetanus Vaccination: Yes Physical Exam - Vital signs Vitals: Temp Pulse Resp BP Pulse Ox 97.5 F 77 18 129/69 H 98 11/20/19 18:01 11/20/19 18:01 11/20/19 18:01 11/20/19 18:01 11/20/19 18:01 Course - Vital Signs Vital signs: Temp Pulse Resp BP Pulse Ox 97.5 F 77 18 129/69 H 98 11/20/19 18:01 11/20/19 18:01 11/20/19 18:01 11/20/19 18:01 11/20/19 18:01 Doctor's Discharge - Discharge Referrals: YASH BURGER MD [Primary Care Provider] - Follow up as needed
--- NOTE | 2019-11-20 19:04 | RADIOLOGY REPORT (SQ) ---
EXAM DESCRIPTION: CT HEAD WITHOUT IMAGES COMPLETED DATE/TIME: 11/20/2019 6:45 pm REASON FOR STUDY: dizziness, nausea severe headache COMPARISON: None. TECHNIQUE: Axial images acquired through the brain without intravenous contrast. Images reviewed wi th bone, brain and subdural windows. Additional sagittal and coronal reconstructions were generated. Images stored on PACS. All CT scanners at this facility use dose modulation, iterative reconstruction, and/or weight based d osing when appropriate to reduce radiation dose to as low as reasonably achievable (ALARA). [facility]: Dose Right [facility]: CareDose [facility]: Dose Right [facility]: Teradose 4D [facility]: Smart Autoquake RADIATION DOSE: CT Rad equipment meets quality standard of care and radiation dose reduction techniq ues were employed. CTDIvol: 53.2 mGy. DLP: 1044 mGy-cm. mGy. LIMITATIONS: None. FINDINGS: VENTRICLES: Normal size and contour. CEREBRUM: No masses. No hemorrhage. No midline shift. There appears to be an aneurysm clip in the right middle cranial fossa. No evidence for acute infarction. Normal gan/white matter differentiati on. No areas of low density in the white matter. CEREBELLUM: No masses. No hemorrhage. No alteration of density. No evidence for acute infarction. EXTRAAXIAL SPACES: No fluid collections. No masses. ORBITS AND GLOBE: No intra- or extraconal masses. Normal contour of globe without masses. CALVARIUM: Craniotomy changes on the right. PARANASAL SINUSES: No fluid or mucosal thickening. SOFT TISSUES: No mass or hematoma. OTHER: No other significant finding. IMPRESSION: Craniotomy changes. Aneurysm clip. No acute intracranial imaging findings. EVIDENCE OF ACUTE STROKE: NO. COMMENT: Quality ID # [id number]: Final reports with documentation of one or more dose reduction techniques (e.g., Automated exposure control, adjustment of the mA and/or kV according to patient size, use of iterative reconstruction technique) TECHNICAL DOCUMENTATION: JOB ID: [id number] 2010 [employer]- All Rights Reserved Reading location - IP/workstation name: [email or web address]
[2019-11-20 19:22] LABS: APPEARANCE,URINE CLEAR; BILIRUBIN,URINE NEGATIVE (NEGATIVE); COLOR,URINE YELLOW; GLUCOSE, URINE NEGATIVE (NEGATIVE); KETONES,URINE NEGATIVE (NEGATIVE); LEUKOCYTE ESTERASE,URINE MODERATE (NEGATIVE); NITRITE,URINE NEGATIVE (NEGATIVE); PROTEIN,URINE NEGATIVE (NEGATIVE); URINE SPECIFIC GRAVITY 1.012; UROBILINOGEN,URINE NEGATIVE mg/dL (<2.0)
[2019-11-20 20:31] LABS: ABSOLUTE EOSINOPHILS # (AUTO) 0.1 10^3/uL (0.0-0.6); ABSOLUTE LYMPHOCYTES (AUTO) 2.3 10^3/uL (0.5-4.7); ABSOLUTE MONOCYTES (AUTO) 0.7 10^3/uL (0.1-1.4); ABSOLUTE NEUT (AUTO) 5.5 10^3/uL (1.7-8.2); BASOPHILS % (AUTO) 0.5 % (0-2); EOSINOPHILS % (AUTO) 0.9 % (0-6); HEMATOCRIT 30.3 % (36.0-47.0); HEMOGLOBIN 10.9 g/dL (12.0-15.5); LYMPHOCYTES % (AUTO) 26.6 % (13-45); MEAN CORPUSCULAR HEMOGLOBIN 34.5 pg (27.0-33.4); MEAN CORPUSCULAR HGB CONC 36.2 g/dL (32.0-36.0); MEAN CORPUSCULAR VOLUME 95 fl (80-97); MONOCYTES % (AUTO) 7.9 % (3-13); PLATELET COUNT 372 10^3/uL (150-450); RED BLOOD COUNT 3.17 10^6/uL (3.72-5.28); RED CELL DISTRIBUTION WIDTH 12.3 % (11.5-14.0); SEGMENTED NEUTROPHILS % (AUTO) 64.1 % (42-78); TOTAL CELLS COUNTED % (AUTO) 100 %; WHITE BLOOD COUNT 8.6 10^3/uL (4.0-10.5)
[2019-11-20 20:45] LABS: ALBUMIN 4.5 g/dL (3.5-5.0); ALKALINE PHOSPHATASE 67 U/L (38-126); ANION GAP 13 (5-19); ASPARTATE AMINO TRANSFERASE 26 U/L (14-36); BILIRUBIN,DIRECT 0.3 mg/dL (0.0-0.4); BILIRUBIN,TOTAL 0.3 mg/dL (0.2-1.3); BLOOD UREA NITROGEN 16 mg/dL (7-20); CALCIUM 9.6 mg/dL (8.4-10.2); CARBON DIOXIDE 22 mmol/L (22-30); CHLORIDE 93 mmol/L (98-107); GLUCOSE 106 mg/dL (75-110); PHOSPHORUS 3.3 mg/dL (2.5-4.5); POTASSIUM 3.5 mmol/L (3.6-5.0); TOTAL PROTEIN 7.4 g/dL (6.3-8.2)
--- NOTE | 2019-11-20 20:53 | ER Document Report ---
Entered by NIA HUGO SCRIBE 11/20/192014 Acting as scribe for:DIMAS CRONIN DO ED General - General Chief Complaint: Dizziness Stated Complaint: DIZZINESS Time Seen by Provider: 11/20/19 18:06 Primary Care Provider: YASH BURGER MD [Primary Care Provider] - Follow up as needed Mode of Arrival: Ambulatory Information source: Patient Notes: This 59 year old female patient presents to the emergency department today with chief complaint of dizziness associated with ringing in her ears. Patient reports history of a cerebral aneurysm, IBS, HTN, and HLD. Patient reports chronic headaches and frequent UTI's. Patient reports suprapubic pain and burning when urinating, and some back pain. Patient states she has visited her PCP x2 and had urine tests, then was put on a antibiotic x2 days ago. Denies any fever, chest pain, shortness of breath, or covid exposure. TRAVEL OUTSIDE OF THE [place] IN LAST 30 DAYS: No - Related Data Allergies/Adverse Reactions: Penicillins Allergy (Intermediate, Verified 10/22/18 17:25) RASH, HIVES, ITCHING Past Medical History - General Information source: Patient - Social History Smoking Status: Current Every Day Smoker Cigarette use (# per day): Yes Family History: Reviewed & Not Pertinent - Past Medical History Cardiac Medical History: Reports: Hx Hypercholesterolemia, Hx Hypertension Neurological Medical History: Reports: Hx Migraine, Hx Seizures GI Medical History: Reports: Hx Irritable Bowel Psychiatric Medical History: Reports: Hx Anxiety, Hx Depression Past Surgical History: Reports: Hx Hysterectomy, Other - Clipping of cerebral aneurysm - Immunizations Hx Diphtheria, Pertussis, Tetanus Vaccination: Yes Review of Systems - Review of Systems Constitutional: See HPI. denies: Fever EENT: See HPI, Other - ringing in ears Cardiovascular: See HPI. denies: Chest pain Respiratory: See HPI. denies: Short of breath Gastrointestinal: See HPI, Abdominal pain - suprapubic, Nausea Genitourinary: See HPI, Burning, Dysuria Female Genitourinary: No symptoms reported Musculoskeletal: See HPI, Back pain Skin: No symptoms reported Hematologic/Lymphatic: No symptoms reported Neurological/Psychological: See HPI, Headaches -: Yes All other systems reviewed and negative Physical Exam - Vital signs Vitals: Temp Pulse Resp BP Pulse Ox 97.5 F 77 18 129/69 H 98 11/20/19 18:01 11/20/19 18:01 11/20/19 18:01 11/20/19 18:01 11/20/19 18:01 - General General appearance: Appears well, Alert - HEENT Head: Normocephalic, Atraumatic Eyes: Normal Pupils: PERRL - Respiratory Respiratory status: No respiratory distress Chest status: Nontender Breath sounds: Normal Chest palpation: Normal - Cardiovascular Rhythm: Regular Heart sounds: Normal auscultation Murmur: No - Abdominal Inspection: Obese Distension: No distension Bowel sounds: Normal Notes: Mild diffuse tenderness with palpation. - Extremities General upper extremity: Normal inspection, Normal ROM General lower extremity: Normal inspection, Normal ROM. No: Edema - Neurological Neuro grossly intact: Yes Cognition: Normal Orientation: AAOx4 Guild Coma Scale Eye Opening: Spontaneous Evy Coma Scale Verbal: Oriented Evy Coma Scale Motor: Obeys Commands Evy Coma Scale Total: 15 Speech: Normal Sensory: Normal - Psychological Associated symptoms: Normal affect, Normal mood - Skin Skin Temperature: Warm Skin Moisture: Dry Skin Color: Normal Course - Re-evaluation Re-evalutation: 11/20/19 20:35 MDM 59 year old female with multiple symptoms - dizziness, headache, tinnitis, abdominal pain, dysuria, otalgia and a bit of anxiety regarding her health. Getting better symptomatically with the cipro she is taking. Discussed folllow up and she expressed understanding. - Vital Signs Vital signs: Temp Pulse Resp BP Pulse Ox 97.5 F 77 18 129/69 H 98 11/20/19 18:01 11/20/19 18:01 11/20/19 18:01 11/20/19 18:01 11/20/19 18:01 - Laboratory Result Diagrams: 11/20/19 19:57 11/20/19 19:57 Laboratory results interpreted by me: 11/20/19 11/20/19 11/20/19 18:57 19:57 19:57 RBC 3.17 L Hgb 10.9 L Hct 30.3 L MCH 34.5 H MCHC 36.2 H Sodium 127.5 L Potassium 3.5 L Chloride 93 L Est GFR (MDRD) Non-Af 52 L Ur Leukocyte Esterase MODERATE H Discharge - Discharge Clinical Impression: Vertigo, Cystitis Condition: Stable Disposition: HOME, SELF-CARE Instructions: COVID-19 Guidance for Persons Under Investigation, Acetaminophen, Antinausea Medication ([facility]), Dizziness ([facility]), Vertigo ([facility]) Additional Instructions: See your doctor in follow up. Rest. Medicines as directed. Please return here for chest pain, shortness of breath or other problems or concerns. Discuss an ENT referral with your doctor. Continue the cipro for the uti. You have been tested for covid 19. Self isolate until you feel better. Prescriptions: Meclizine HCl [Antivert 12.5 mg Tablet] 12.5 mg PO TID #15 tablet Referrals: YASH BURGER MD [Primary Care Provider] - Follow up as needed I personally performed the services described in the documentation, reviewed and edited the documentation which was dictated to the scribe in my presence, and it accurately records my words and actions.
[2019-11-20 21:02] VITALS: BP 110/70
== END 2019-11-20 21:13 | disposition home or self-care (01) ==
LOC: ER 17:55
DX: R42 Dizziness and giddiness (principal); N30.90 Cystitis, unspecified without hematuria; H93.13 Tinnitus, bilateral; R51.9 Headache, unspecified; R11.0 Nausea; R10.30 Lower abdominal pain, unspecified; R10.817 Generalized abdominal tenderness; H92.09 Otalgia, unspecified ear; F41.9 Anxiety disorder, unspecified; M54.9 Dorsalgia, unspecified; I10 Essential (primary) hypertension; Z86.79 Personal history of other diseases of the circulatory system; F17.210 Nicotine dependence, cigarettes, uncomplicated; Z86.69 Personal history of other diseases of the nervous system and sense organs; Z88.0 Allergy status to penicillin; Z20.828 Contact with and (suspected) exposure to other viral communicable diseases
CPT/HCPCS: 99284; 36415; 87086; 83690; 83735; 84100; 85025; 87635; 80053; 81001; 70450; C9803

== ENCOUNTER → 2019-11-28 | Outpatient (CLI) | payer MEDICAID ==
[2019-11-28 14:42] LABS: ANION GAP 12 (5-19); BLOOD UREA NITROGEN 16 mg/dL (7-20); CALCIUM 9.2 mg/dL (8.4-10.2); CARBON DIOXIDE 17 mmol/L (22-30); CHLORIDE 110 mmol/L (98-107); GLUCOSE 92 mg/dL (75-110); POTASSIUM 4.9 mmol/L (3.6-5.0)
== END ==
LOC: OD 13:04
PROVIDERS: ATTEND Physician Assistant
DX: E87.1 Hypo-osmolality and hyponatremia (principal)
CPT/HCPCS: 36415; 80048